=== PATIENT | male | born 1960 | race Caucasian/White ===

== ENCOUNTER 2021-02-19 08:25 | Outpatient (REF) | payer OTHER, SELFPAY ==
[2021-02-19 11:31] LABS: Hematocrit 43.5 % (42.0-52.0); Hemoglobin 15.1 g/dl (14.0-18.0); Mean Corpuscular HGB Conc 34.7 g/dl (31.0-36.0); Mean Corpuscular Hemoglobin 31.9 pg (27.0-33.0); Mean Platelet Volume 10.1 fL (9.4-12.4); Platelet Count 275 X10*3/uL (160-400); Red Blood Count 4.73 X10*6/uL (4.60-5.80); Red Cell Distribution Width 11.9 % (11.0-16.0); White Blood Count 6.2 X10*3/uL (4.8-10.8)
[2021-02-19 11:42] LABS: Estimated Average Glucose 105 mg/dL; Hemoglobin A1c % 5.3 %
[2021-02-19 12:00] LABS: Alanine Aminotransferase 61 U/L (0-40); Albumin Level 4.3 g/dL (3.5-5.0); Alkaline Phosphatase 44 U/L (39-117); Anion Gap 12 (12-20); Aspartate Amino Transferase 28 U/L (5-37); Bilirubin Total 0.9 mg/dL (0.0-1.0); Blood Urea Nitrogen 23 mg/dL (9-16); Calcium 9.6 mg/dL (8.4-10.2); Carbon Dioxide 26 mmol/L (22-29); Chloride 106 mmol/L (96-108); Cholesterol 292 mg/dL; Estimated Glomerular Filt Rate > 60; Glucose Fasting 109 mg/dL (60-99); HDL Cholesterol 51 mg/dL; LDL Cholesterol Calculated 193 mg/dl; Potassium 3.7 mmol/L (3.3-5.1); Sodium 140 mmol/L (135-145); Total Protein 7.2 g/dL (6.5-8.0); Triglycerides 241 mg/dL
[2021-02-19 12:05] LABS: Appearance Urine HAZY; Color Urine ORANGE; Glucose Urine UA NEG (NEG); Leukocyte Esterase Urine NEG (NEG); Nitrite Urine NEG (NEG); Urine Blood NEG (NEG); Urine Ketones NEG (NEG); Urine Protein NEG (NEG-TRACE)
[2021-02-19 12:23] LABS: Prostate Specific Antigen Scr 1.26 ng/mL (<0.05-4.0)
[2021-02-19 13:15] LABS: RBC Urine 0 /HPF (0); WBC Urine 0-2 /HPF (0-4)
[2021-02-19 13:16] LABS: Amorphous Sediment Urine 3+ /LPF; Mucus Urine 1+ /LPF
== END 2021-02-19 08:26 | disposition home or self-care (01) ==
LOC: HO.HMGCLDS 08:25
PROVIDERS: PCP Internal Medicine; Visit Provider Internal Medicine
DX: Z12.5 Encounter for screening for malignant neoplasm of prostate (principal); E78.5 Hyperlipidemia, unspecified; I10 Essential (primary) hypertension; R73.9 Hyperglycemia, unspecified
CPT/HCPCS: 36415; 80053; 80061; 81001; 83036; 84153; 85027

== ENCOUNTER 2022-02-23 09:35 | Outpatient (REF) | payer OTHER, SELFPAY ==
[2022-02-23 11:28] LABS: MANUAL DIFF FLAG NO
[2022-02-23 11:34] LABS: Basophils Absolute Auto 0.1 X10*3/uL (0.0-0.2); Basophils Percent Auto 0.8 % (0-2); Eosinophils Absolute Auto 0.2 X10*3/uL (0.0-0.4); Eosinophils Percent Auto 2.9 % (0-4); Hematocrit 44.9 % (42.0-52.0); Hemoglobin 15.5 g/dl (14.0-18.0); Imm Gran Abs Auto 0.03 X10*3/uL (0.00-0.03); Imm Gran Pct Auto 0.5 % (0.0-0.4); Lymphocytes Absolute Auto 1.7 X10*3/uL (1.2-4.9); Lymphocytes Percent Auto 25.6 % (20-40); Mean Corpuscular HGB Conc 34.5 g/dl (31.0-36.0); Mean Corpuscular Hemoglobin 31.8 pg (27.0-33.0); Mean Corpuscular Volume 92.2 fL (80.0-98.0); Mean Platelet Volume 10.3 fL (9.4-12.4); Monocytes Absolute Auto 0.5 X10*3/uL (0.1-1.2); Monocytes Percent Auto 7.3 % (2-11); Neutrophils Absolute Auto 4.2 x10*3/uL (2.0-8.3); Neutrophils Percent Auto 62.9 % (45-73); Platelet Count 272 X10*3/uL (160-400); Red Blood Count 4.87 X10*6/uL (4.60-5.80); Red Cell Distribution Width 11.7 % (11.0-16.0); White Blood Count 6.6 X10*3/uL (4.8-10.8)
[2022-02-23 13:55] LABS: Alanine Aminotransferase 57 U/L (0-40); Albumin Level 4.5 g/dL (3.5-5.0); Alkaline Phosphatase 47 U/L (39-117); Anion Gap 13 (12-20); Aspartate Amino Transferase 21 U/L (5-37); Bilirubin Total 0.9 mg/dL (0.0-1.0); Blood Urea Nitrogen 18 mg/dL (9-16); Calcium 9.7 mg/dL (8.4-10.2); Carbon Dioxide 28 mmol/L (22-29); Chloride 104 mmol/L (96-108); Cholesterol 218 mg/dL; Estimated Glomerular Filt Rate > 60; Glucose Fasting 117 mg/dL (60-99); HDL Cholesterol 47 mg/dL; LDL Cholesterol Calculated 135 mg/dl; PSA,Total (Free>4and<10) 0.77 ng/mL (0.00-4.00); Sodium 141 mmol/L (135-145); Total Protein 7.2 g/dL (6.5-8.0); Triglycerides 181 mg/dL
[2022-02-23 14:16] LABS: Estimated Average Glucose 105 mg/dL; Hemoglobin A1c % 5.3 %
== END 2022-02-23 09:36 | disposition home or self-care (01) ==
LOC: HO.HMGCLDS 09:35
PROVIDERS: PCP Internal Medicine; Visit Provider Internal Medicine
DX: R73.9 Hyperglycemia, unspecified (principal); E78.5 Hyperlipidemia, unspecified; I10 Essential (primary) hypertension; Z12.5 Encounter for screening for malignant neoplasm of prostate
CPT/HCPCS: 36415; 80053; 80061; 83036; 84153; 85025

== ENCOUNTER 2023-06-08 12:38 | Outpatient (AMB) | payer OTHER, SELFPAY ==
[2023-06-08 13:00] VITALS: BP 138/88; PULSE 84; O2SAT 97; BMI 29.6
--- NOTE | 2023-06-08 13:00 | MHC.PC.OV ---
Vital Signs 06/08/23 13:00 Height 5 ft 7 in Weight 189 lb BMI 29.6 BP 138/88 Blood Pressure Location Rt brachial Position Sitting Pulse 84 Pulse Source Pulse Oximeter Pulse Oximetry (%) 97 Oxygen Delivery Method Room Air Intake Visit Reasons: medication follow up Intake Note: Pt is here today for a follow up visit. Allergies aspirin Adverse Reaction (Verified 06/08/23 13:00) upset stomach Medication List - Last Reconciled 06/08/23 by Earline Saucedo MD lisinopril 40 mg PO DAILY omega-3 fatty acids 1,000 mg PO DAILY rosuvastatin (Crestor) 10 mg PO DAILY triamterene-hydrochlorothiazid 37.5-25 mg 1 tab PO DAILY Tobacco use date assessed: 06/08/23 Dental Screening Dental Screen Date: 06/08/23 Did you have a dental visit in the last 12 months?: Yes Did you have a dental problem in the last 6 months where you did not have access to dental care?: No Was dental information given to patient?: Patient has dentist HPI medication follow up HPI Details Patient presents for the follow-up on hypertension hyperlipidemia PFSH Medical History Annual physical exam Hyperglycemia Hyperlipidemia HTN (hypertension) Surgical History H/O colonoscopy Social History Housing: House Patient Tobacco Use Status: Former Tobacco user Years Smoked: 20 yrs e-Cigarette/Vaping Use: Never Used service: No Current occupational status: employed Cognitive needs: No Hearing needs: No Vision needs: Yes Questionnaire PHQ-9 Over the last 2 weeks, how often have you been bothered by any of the following problems? 1. Little interest or pleasure in doing things: not at all 2. Feeling down, depressed, or hopeless: not at all 3. Trouble falling or staying asleep, or sleeping too much: not at all 4. Feeling tired or having little energy: not at all 5. Poor appetite or overeating: not at all 6. Feeling bad about yourself - or that you are a failure or have let yourself or your family down: not at all 7. Trouble concentrating on things, such as reading the newspaper or watching television: not at all 8. Moving or speaking so slowly that other people could have noticed. Or the opposite - being so fidgety or restless that you have been moving around a lot more than usual: not at all 9. Thoughts that you would be better off or of hurting yourself in some way: not at all Total score: 0 Depression Screening Interpretation: Negative Depression Screening Done: Yes Source: Developed by Drs. Jethro Keating, Ashley Suero, Brendan Weems and colleagues, with an educational yusef from [employer]. Thrive Questionnaire Date Thrive assessed: 06/08/23 I am a: Patient What is your living situation today?: I have a steady place to live Within the past 12 months, did the food you bought not last and you didn't have the money to get more?: Never true Within the past 12 months, did you worry whether your food would run out before you got money to buy more?: Never true Do you have trouble paying for medicines?: No Do you have trouble getting transportation to medical appointments?: No Do you have trouble paying your heating and electricity bill?: No Do you have trouble taking care of your child, family member or friend?: No Do you have trouble with day-to-day activities such as bathing, preparing meals, shopping, managing finances, etc.?: No Are you currently unemployed and looking for a job?: No Are you interested in more education?: No Please select the resources that you would like help with: None Currently or been in a relationship where the following occur: no concerns reported THRIVE Score: 0 AUDIT C Alcohol Use Questionnaire (AUDIT-C) 1. How often do you have a drink containing alcohol?: Monthly or less 2. How many drinks containing alcohol do you have on a typical day when you are drinking?: 1 or 2 3. How often do you have six or more drinks on one occasion?: Never Total Score: 1 ASIF-7 AMB Questionnaire ASIF-7 Date ASFI - 7 assessed: 06/08/23 Feeling nervous, anxious, or on edge: 0 = Not at all Not being able to stop or control worryin = Not at all Worrying too much about different things: 0 = Not at all Trouble relaxin = Not at all Being so restless that it is hard to sit still: 0 = Not at all Becoming easily annoyed or irritable: 0 = Not at all Feeling afraid as if something awful might happen: 0 = Not at all Total ASIF-7 score (0-4 normal; 5-9 mild; 10-14 moderate; 15-21 severe): 0 Source: Developed by Drs. Jethro Keating, Ashley Suero, Brendan Weems and colleagues, with an educational yusef from [employer]. ASIF-7 Assessment Billing ASIF-7 Assessment Tool: ASIF-7 Assessment 65825 Review of Systems Const All systems reviewed & are unremarkable except as noted in HPI and below Eyes Reports no additional complaints ENT Reports no additional complaints Card Reports no additional complaints Resp Reports no additional complaints GI Reports no additional complaints Physical exam (Primary Care) Vital Signs: Last Vital Signs Pulse 84 06/08/23 13:00 Pulse Ox 97 06/08/23 13:00 Oxygen Delivery Method Room Air 06/08/23 13:00 BMI result Body Mass Index 29.6 Tobacco/Smoking Status: Tobacco use Status Tobacco use date assessed 06/08/23 06/08/23 13:07 Patient Tobacco Use Status Former Tobacco user 06/08/23 13:07 e-Cigarette/Vaping Use Never Used 06/08/23 13:07 PHQ-9: PHQ-9 Score PHQ-9: Total score 0 06/08/23 13:31 Depression Screening Interpretation: Negative Thrive Assessment: Date of Thrive Assessment Date Thrive assessed 06/08/23 06/08/23 13:07 Currently or been in a relationship where the following occur: no concerns reported Const General: no acute distress HENMT Head: Yes normal to inspection Mouth: Normal oral and palatal mucosa present Eyes General: appearance normal, both eyes and all related structures Resp Effort & Inspection: normal respiratory effort Auscultation: clear to auscultation bilaterally Cardio Rhythm: regular rhythm Heart sounds: S1 normal heart sound present and S2 normal heart sound present GI Inspection: Yes normal to inspection Assessment and Plan Assessment & Plan (1) Annual physical exam: Code(s): Z00.00 - Encounter for general adult medical examination without abnormal findings (2) Hyperglycemia: Code(s): R73.9 - Hyperglycemia, unspecified Plan: ADA diet regular physical activity discussed with the patient return for fasting blood work including A1c (3) Hyperlipidemia: Code(s): E78.5 - Hyperlipidemia, unspecified Plan: Continue crestor (4) HTN (hypertension): Code(s): I10 - Essential (primary) hypertension Plan: Change lisinopril 40 mg to amlodipine with benazepril 5/40 and continue triamterene with hydrochlorothiazide patient will return for fasting blood work and follow-up in 6 weeks Orders: Orders Lipid Panel Today E78.5 - Hyperlipidemia, unspecified, I10 - Essential (primary) hypertension, R73.9 - Hyperglycemia, unspecified, Z00.00 - Encounter for general adult medical examination without abnormal findings PSA,Total (Free>4and<10) Today E78.5 - Hyperlipidemia, unspecified, I10 - Essential (primary) hypertension, R73.9 - Hyperglycemia, unspecified, Z00.00 - Encounter for general adult medical examination without abnormal findings Comprehensive [place]. Panel Fast Today E78.5 - Hyperlipidemia, unspecified, I10 - Essential (primary) hypertension, R73.9 - Hyperglycemia, unspecified, Z00.00 - Encounter for general adult medical examination without abnormal findings Complete Blood Count Auto Diff Today E78.5 - Hyperlipidemia, unspecified, I10 - Essential (primary) hypertension, R73.9 - Hyperglycemia, unspecified, Z00.00 - Encounter for general adult medical examination without abnormal findings UA w Microscopic Today E78.5 - Hyperlipidemia, unspecified, I10 - Essential (primary) hypertension, R73.9 - Hyperglycemia, unspecified, Z00.00 - Encounter for general adult medical examination without abnormal findings Hemoglobin A1c Today R73.9 - Hyperglycemia, unspecified Medications: New amlodipine-benazepril 5-40 mg 1 cap PO DAILY 90 caps 0RF Refilled triamterene-hydrochlorothiazid 37.5-25 mg 1 tab PO DAILY 90 tabs 0RF triamterene-hydrochlorothiazid 37.5-25 mg 1 tab PO DAILY 90 tabs 3RF rosuvastatin (Crestor) 10 mg PO DAILY 90 tabs 3RF Discontinued lisinopril Discontinued Reason: Doctor's Order 40 mg PO DAILY 90 tabs 0RF Coding Level of Care Code Est Pt Level 4 (72575) Diagnoses Annual physical exam Z00.00 Hyperglycemia R73.9 Hyperlipidemia E78.5 HTN (hypertension) I10 Additional Codes ASIF-7 Assessment Billing - ASIF-7 Assessment Tool: ASIF-7 Assessment 92802 ([id number])
== END 2023-06-08 13:44 | disposition home or self-care (01) ==
PROVIDERS: PCP Internal Medicine; Visit Provider Internal Medicine
DX: R73.9 Hyperglycemia, unspecified (principal); E78.5 Hyperlipidemia, unspecified; I10 Essential (primary) hypertension
CPT/HCPCS: 99214

== ENCOUNTER 2023-07-13 07:44 | Outpatient (REF) | payer OTHER, SELFPAY ==
[2023-07-13 10:27] LABS: Appearance Urine Clear; Color Urine Dark Yellow; Glucose Urine UA Negative (Negative); Leukocyte Esterase Urine Negative (Negative); Nitrite Urine Negative (Negative); PH 6.5 (5.0-9.0); Specific Gravity - Urine 1.025 (1.005-1.025); Urine Blood Negative (Negative); Urine Ketones Negative (Negative); Urine Protein Trace mg/dL (Neg-Trace)
[2023-07-13 10:27] LABS: MANUAL DIFF FLAG NO
[2023-07-13 10:43] LABS: Bacteria Urine None Seen (None Seen); Hyaline Casts Urine 0-2 /LPF (0-2); RBC Urine 0-2 /HPF (0-2); Squamous Epithelial Cell Urine 0-2 /HPF (0-2); WBC Urine 0-5 /HPF (0-5)
[2023-07-13 10:45] LABS: Basophils Absolute Auto 0.1 X10*3/uL (0.0-0.2); Basophils Percent Auto 1.1 % (0-2); Eosinophils Absolute Auto 0.1 X10*3/uL (0.0-0.4); Eosinophils Percent Auto 2.4 % (0-4); Hematocrit 44.3 % (42.0-52.0); Hemoglobin 15.3 g/dl (14.0-18.0); Imm Gran Abs Auto 0.02 X10*3/uL (0.00-0.03); Imm Gran Pct Auto 0.4 % (0.0-0.4); Lymphocytes Absolute Auto 1.5 X10*3/uL (1.2-4.9); Mean Corpuscular HGB Conc 34.5 g/dl (31.0-36.0); Mean Corpuscular Hemoglobin 32.3 pg (27.0-33.0); Mean Corpuscular Volume 93.5 fL (80.0-98.0); Mean Platelet Volume 10.3 fL (9.4-12.4); Monocytes Absolute Auto 0.6 X10*3/uL (0.1-1.2); Monocytes Percent Auto 10.6 % (2-11); Neutrophils Absolute Auto 3.2 x10*3/uL (2.0-8.3); Neutrophils Percent Auto 58.5 % (45-73); Platelet Count 251 X10*3/uL (160-400); Red Blood Count 4.74 X10*6/uL (4.60-5.80); Red Cell Distribution Width 11.4 % (11.0-16.0); White Blood Count 5.4 X10*3/uL (4.8-10.8)
[2023-07-13 10:54] LABS: Estimated Average Glucose 108 mg/dL; Hemoglobin A1c % 5.4 % (<6.0)
[2023-07-13 11:06] LABS: PSA,Total (Free>4and<10) 1.57 ng/mL (0.00-4.00)
[2023-07-13 11:18] LABS: Alanine Aminotransferase 43 U/L (0-40); Albumin Level 4.1 g/dL (3.5-5.0); Alkaline Phosphatase 39 U/L (39-117); Anion Gap 13 (12-20); Aspartate Amino Transferase 23 U/L (5-37); Bilirubin Total 0.7 mg/dL (0.0-1.0); Blood Urea Nitrogen 16 mg/dL (9-16); Calcium 9.5 mg/dL (8.4-10.2); Carbon Dioxide 27 mmol/L (22-29); Chloride 106 mmol/L (96-108); Cholesterol 179 mg/dL (<200); Estimated Glomerular Filt Rate > 60; Glucose Fasting 104 mg/dL (60-99); HDL Cholesterol 47 mg/dL (>40); LDL Cholesterol Calculated 96 mg/dL (<100); Potassium 3.6 mmol/L (3.3-5.1); Sodium 142 mmol/L (135-145); Total Protein 7.3 g/dL (6.5-8.0); Triglycerides 182 mg/dL (<150)
== END 2023-07-13 07:45 | disposition home or self-care (01) ==
LOC: HO.HMGCLDS 07:44
PROVIDERS: PCP Internal Medicine; Visit Provider Internal Medicine
DX: Z00.00 Encounter for general adult medical examination without abnormal findings (principal); R73.9 Hyperglycemia, unspecified; E78.5 Hyperlipidemia, unspecified; I10 Essential (primary) hypertension
CPT/HCPCS: 36415; 80053; 80061; 81001; 83036; 84153; 85025

== ENCOUNTER 2023-07-22 11:06 | Outpatient (AMB) | payer OTHER, SELFPAY ==
[2023-07-22 11:19] VITALS: BP 136/88; PULSE 86; O2SAT 98; BMI 29.8
--- NOTE | 2023-07-22 11:19 | A.OFFPC_ITS ---
Vital Signs 07/22/23 11:19 Height 5 ft 7 in Weight 190 lb BMI 29.8 BP 136/88 Blood Pressure Location Lt brachial Position Sitting Pulse 86 Pulse Source Pulse Oximeter Pulse Oximetry (%) 98 Oxygen Delivery Method Room Air Intake Visit Reasons: medication follow up Intake Note: Pt is here today for a follow up visit. Allergies aspirin Adverse Reaction (Verified 07/22/23 11:19) upset stomach Medication List - Last Reconciled 07/22/23 by Earline Saucedo MD amlodipine-benazepril 5-40 mg 1 cap PO DAILY omega-3 fatty acids 1,000 mg PO DAILY rosuvastatin (Crestor) 10 mg PO DAILY triamterene-hydrochlorothiazid 37.5-25 mg 1 tab PO DAILY Tobacco use date assessed: 07/22/23 Dental Screening Dental Screen Date: 06/08/23 HPI medication follow up HPI Details Pt presents for HTN and hyperlipid, stable on meds. [facility] Medical History Annual physical exam Hyperglycemia Hyperlipidemia HTN (hypertension) Surgical History H/O colonoscopy Social History Housing: House Patient Tobacco Use Status: Former Tobacco user Years Smoked: 20 yrs e-Cigarette/Vaping Use: Never Used service: No Current occupational status: employed Cognitive needs: No Hearing needs: No Vision needs: Yes Questionnaire Thrive Questionnaire Date Thrive assessed: 06/08/23 ASIF-7 AMB Questionnaire ASIF-7 Date ASIF - 7 assessed: 06/08/23 Source: Developed by Drs. Jethro Keating, Ashley Suero, Brendan Weems and colleagues, with an educational yusef from [employer]. Review of Systems Const All systems reviewed & are unremarkable except as noted in HPI and below ENT Reports no additional complaints Card Reports no additional complaints Resp Reports no additional complaints GI Reports no additional complaints Reports no additional complaints Physical exam (Primary Care) Vital Signs: Last Vital Signs Pulse 86 07/22/23 11:19 BP 136/88 07/22/23 11:19 Pulse Ox 98 07/22/23 11:19 Oxygen Delivery Method Room Air 07/22/23 11:19 BMI result Body Mass Index 29.8 Tobacco/Smoking Status: Tobacco use Status Tobacco use date assessed 07/22/23 07/22/23 11:19 Patient Tobacco Use Status Former Tobacco user 07/22/23 11:19 e-Cigarette/Vaping Use Never Used 07/22/23 11:19 Thrive Assessment: Date of Thrive Assessment Date Thrive assessed 06/08/23 07/22/23 11:19 Const General: no acute distress HENMT Face and sinus: Yes normal facial exam Eyes General: appearance normal, both eyes and all related structures Resp Effort & Inspection: normal respiratory effort Auscultation: clear to auscultation bilaterally Cardio Rhythm: regular rhythm Heart sounds: S1 normal heart sound present and S2 normal heart sound present Assessment and Plan Assessment & Plan (1) HTN (hypertension): Code(s): I10 - Essential (primary) hypertension Plan: Continue current medication low-sodium diet increase physical activity discussed with the patient follow-up in 2 months (2) Hyperlipidemia: Code(s): E78.5 - Hyperlipidemia, unspecified Plan: cont statin Orders: Orders Basic Metabolic Panel 2 Months I10 - Essential (primary) hypertension Coding Level of Care Code Est Pt Level 3 (03999) Diagnoses HTN (hypertension) I10 Hyperlipidemia E78.5
== END 2023-07-22 11:45 | disposition home or self-care (01) ==
PROVIDERS: PCP Internal Medicine; Visit Provider Internal Medicine
DX: I10 Essential (primary) hypertension (principal); E78.5 Hyperlipidemia, unspecified
CPT/HCPCS: 99213

== ENCOUNTER 2023-10-31 09:30 | Outpatient (REF) | payer OTHER, SELFPAY ==
[2023-10-31 11:40] LABS: Anion Gap 14 (12-20); Blood Urea Nitrogen 23 mg/dL (9-16); Calcium 9.2 mg/dL (8.4-10.2); Carbon Dioxide 26 mmol/L (22-29); Chloride 103 mmol/L (96-108); Estimated Glomerular Filt Rate > 60; Glucose Random 117 mg/dL (60-115); Potassium 3.6 mmol/L (3.3-5.1); Sodium 139 mmol/L (135-145)
== END 2023-10-31 09:31 | disposition home or self-care (01) ==
LOC: HO.HMGCLDS 09:30
PROVIDERS: PCP Internal Medicine; Visit Provider Internal Medicine
DX: I10 Essential (primary) hypertension (principal)
CPT/HCPCS: 36415; 80048

== ENCOUNTER 2023-11-02 11:06 | Outpatient (AMB) | payer OTHER, SELFPAY ==
[2023-11-02 11:17] VITALS: BP 128/84; PULSE 75; O2SAT 97; BMI 29.6
--- NOTE | 2023-11-02 11:17 | MHC.PC.OV ---
Vital Signs 11/02/23 11:17 Height 5 ft 7 in Weight 189 lb BMI 29.6 BP 128/84 Blood Pressure Location Lt brachial Position Sitting Pulse 75 Pulse Source Pulse Oximeter Pulse Oximetry (%) 97 Oxygen Delivery Method Room Air Intake Visit Reasons: 2 month follow up Intake Note: Pt is here today for 2 months follow up visit on HTN. Allergies aspirin Adverse Reaction (Verified 11/02/23 11:29) upset stomach Medication List - Last Reconciled 11/02/23 by Earline Saucedo MD amlodipine-benazepril 5-40 mg 1 cap PO DAILY omega-3 fatty acids 1,000 mg PO DAILY rosuvastatin (Crestor) 10 mg PO DAILY triamterene-hydrochlorothiazid 37.5-25 mg 1 tab PO DAILY Tobacco use date assessed: 07/22/23 Dental Screening Dental Screen Date: 06/08/23 HPI 2 month follow up HPI Details Patient presents for the follow-up on hypertension hyperlipidemia PFSH Medical History Annual physical exam Hyperglycemia Hyperlipidemia HTN (hypertension) Surgical History H/O colonoscopy Social History Housing: House Patient Tobacco Use Status: Former Tobacco user Years Smoked: 20 yrs e-Cigarette/Vaping Use: Never Used service: No Current occupational status: employed Cognitive needs: No Hearing needs: No Vision needs: Yes Questionnaire Thrive Questionnaire Date Thrive assessed: 06/08/23 ASIF-7 AMB Questionnaire ASIF-7 Date ASIF - 7 assessed: 06/08/23 Source: Developed by Drs. Jethro Keating, Ashley Seuro, Brendan Weems and colleagues, with an educational yusef from [employer]. Review of Systems Const All systems reviewed & are unremarkable except as noted in HPI and below Eyes Reports no additional complaints ENT Reports no additional complaints Card Reports no additional complaints Resp Reports no additional complaints GI Reports no additional complaints Reports no additional complaints Musc Reports no additional complaints Physical exam (Primary Care) Vital Signs: Last Vital Signs Pulse 75 11/02/23 11:17 BP 128/84 11/02/23 11:17 Pulse Ox 97 11/02/23 11:17 Oxygen Delivery Method Room Air 11/02/23 11:17 BMI result Body Mass Index 29.6 Tobacco/Smoking Status: Tobacco use Status Tobacco use date assessed 07/22/23 11/02/23 11:19 Patient Tobacco Use Status Former Tobacco user 11/02/23 11:19 e-Cigarette/Vaping Use Never Used 11/02/23 11:19 Thrive Assessment: Date of Thrive Assessment Date Thrive assessed 06/08/23 11/02/23 11:19 Const General: no acute distress HENMT Head: Yes normal to inspection Neck Neck: Yes supple Resp Effort & Inspection: normal respiratory effort Auscultation: clear to auscultation bilaterally Cardio Rhythm: regular rhythm Heart sounds: S1 normal heart sound present and S2 normal heart sound present GI Inspection: Yes normal to inspection Palpation (GI): Soft to palpation Assessment and Plan Assessment & Plan (1) Hyperglycemia: Code(s): R73.9 - Hyperglycemia, unspecified Plan: Continue ADA diet check A1C in 3 months (2) Hyperlipidemia: Code(s): E78.5 - Hyperlipidemia, unspecified Plan: Continue rosuvastatin (3) HTN (hypertension): Code(s): I10 - Essential (primary) hypertension Plan: Continue current medications follow-up in 3 months with a fasting labs before Orders: Orders Hemoglobin A1c 3 Months E78.5 - Hyperlipidemia, unspecified, I10 - Essential (primary) hypertension, R73.9 - Hyperglycemia, unspecified Lipid Panel 3 Months E78.5 - Hyperlipidemia, unspecified, I10 - Essential (primary) hypertension, R73.9 - Hyperglycemia, unspecified Comprehensive [place]. Panel Fast 3 Months E78.5 - Hyperlipidemia, unspecified, I10 - Essential (primary) hypertension, R73.9 - Hyperglycemia, unspecified Complete Blood Count Auto Diff 3 Months E78.5 - Hyperlipidemia, unspecified, I10 - Essential (primary) hypertension, R73.9 - Hyperglycemia, unspecified Microalbumin, Random (w Creat) 3 Months E78.5 - Hyperlipidemia, unspecified, I10 - Essential (primary) hypertension, R73.9 - Hyperglycemia, unspecified Medications: Changed From rosuvastatin (Crestor) 10 mg PO DAILY 90 tabs 3RF To rosuvastatin 10 mg PO DAILY 90 tabs 3RF Refilled amlodipine-benazepril 5-40 mg 1 cap PO DAILY 90 caps 3RF Coding Level of Care Code Est Pt Level 4 (51436) Diagnoses Hyperglycemia R73.9 Hyperlipidemia E78.5 HTN (hypertension) I10
== END 2023-11-02 12:19 | disposition home or self-care (01) ==
PROVIDERS: PCP Internal Medicine; Visit Provider Internal Medicine
DX: R73.9 Hyperglycemia, unspecified (principal); E78.5 Hyperlipidemia, unspecified; I10 Essential (primary) hypertension
CPT/HCPCS: 99214

== ENCOUNTER 2024-02-21 08:49 | Outpatient (REF) | payer OTHER, SELFPAY ==
--- OUTSIDE RECORDS SUMMARY | 2024-02-21 09:08 | XMS_ITS | Data Portability ---
Author Organization [place] [facility] Gregory Pena [place] Address [address] [facility] [address] [place] [address] Care Team Providers Care Full Roll Inspector Name Role Phone BILLORLANDOReinaldoSTEVENSON Primary Care Provider [phone] Assessment Encounter Date Assessment Date Assessment LastModified by Organization Details LastModified Time 10/05/2022 10/05/2022 This is a pleasant 61-year-old male with ongoing left knee pain has been getting progressively worse with clinical exam findings suggestive of derangement of meniscus versus mild arthritic flare. I had a discussion regarding management for which she opted for cortisone injection at today's visit. After verbal consent was granted the procedure was carried out on the left knee tolerated the procedure well. Aftercare instructions were discussed in detail. We discussed other modalities including brqv-ljs-[id number] analgesia and topicals as well as therapy. The symptoms however do not improve in 4 weeks he will call me and I will order an MRI otherwise I will see him back in 3 months for repeat clinical exam. Should he have any questions or concerns he should contact my office. He waited 15 minutes in the waiting room without any untoward effect from the cortisone injection. Indirect care and treatment in conjunction with Dr. Matthew Additional treatment plan discussed with the patient in detail included the following; - Provider focused nonsteroidal anti-inflammator y regimen (discussed were the pros, cons, benefits and risks as well as any black box warnings) in patients over 60 years old they should be very cautious in taking these medications due to potential decreased kidney function and or elevated blood pressure. - Analgesic pain medication for pain suppression (discussed were the pros, cons, benefits and risks as well as any black box warnings) - The use of topical pain relieving medication were discussed - The use of ice to decrease inflammation and pain - The use of assistive ambulatory devices for ambulation and fall prevention - Formal specific guided physical therapy program I reviewed my findings at length with the patient today. ??We discussed the nature and etiology of this problem along with current treatment options. We discussed the expected course and outcomes and what to expect. We also discussed risks and benefits. ?? All of their questions were answered today, and there was exhibited understanding and comprehension of all that was discussed. Time Spent: 10 minutes were spent reviewing previous imaging and charting. ??10 minutes were spent obtaining patient history. ??5 minutes were spent on physical exam. ??5??minutes were spent explaining diagnosis and assessment. Today's documentation was made using voice recognition software. This note may contain grammatical errors secondary to the software. Not available 10/05/2022 10:19:38 Plan of Treatment Reminders Order Date Submit Date Provider Last Modified By Organization Details Last Modified Time Details Appointments None recorded. Lab None recorded. Referral None recorded. Procedures None recorded. Surgeries None recorded. Imaging XR, knee, 4 or more view 2022 [address] [place] [address] [facility], [address], [place], [address], 3 15:02:12 Medication Orders Kenalog 40 mg/mL suspension for injection 2022 [address] [place] [address] [facility], [address] [place], [address], 3 10:20:12 lidocaine (PF) 10 mg/mL (1 %) injection solution 2022 [address] [place] [address] [facility], [address] [place], [address], 3 10:20:12 Patient TargetsNo targets recorded. Patient Instructions Encounter Date Encounter Id Patient Instructions Last Modified By Organization Details Last Modified Time 10/05/2022 [id number] You have been provided with a cortisone injection in order to reduce the pain and inflammation that you are experiencing. The injection consists of two medications. Cortisone (an anti-inflammatory that will take 48-72 hours to take effect) and Lidocaine (a numbing agent that will last 2-3 hours). Please note that not everyone will have a lasting response following the injection. PATIENT INSTRUCTIONS Once the Lidocaine wears off, you may have an increase in your pain. I recommend icing the affected area for 20 minutes 3-4 times per day. It is recommended that you refrain from any high level activities using the joint or limb that was injected for approximately 24-48 hours. Normal day-to-day activities are generally not a problem. POSSIBLE SIDE EFFECTS Individuals with dark complexions may experience some skin discoloration locally at the site of the injection. There is the possibility of an increase in discomfort within 48 hours following the injection. This is called a ? flare? . To help minimize the chances of this, please see the post-injection instructions above. There is a less than 1% chance of an infection. If you notice any signs of infection (redness, warmth, drainage, fever greater than 100 degrees) please call our office or contact us through the portal [facility]. Not available 10/05/2022 10:20:22 4 view x-ray of the left knee reveals very mild degenerative joint disease otherwise no acute bony abnormality Not available 10/05/2022 09:56:28 Reason for Referral None Reported. Problems Name Problem SNOMED Code Status Onset Date Resolution Date Notes Provider Name and Address Organization Details Recorded Time Derangement of medial meniscus 389013804 Active 2022 BETTY UDNERWOOD PA-C [address], [place], [address], [place] [facility] 3 10:19:51 Problem Notes None recorded. Procedures Surgical History Date Name Laterality Status Provider Name and Address Organization Details Recorded Time 3 Knee Joint/Bursa Asp & Inj completed BETTY UNDERWOOD PA-C [address], [place], [address], [place] [facility] 10/05/2022 10:16:54 Knee Surgery completed [facility] - [facility] 10/05/2022 10:03:09 Imaging Results None recorded. Procedure Notes None recorded. Medical Equipment None Reported. Allergies No known drug allergies Medications Name Sig Start Date Stop Date Status Note LastModified by Organization Details LastModified Time Kenalog 40 mg/mL suspension for injection Take 1 mL by injection route. 2022 active Not Available Not Available Not Avai lable triamterene 37.5 mg-hydrochl orothiazide 25 mg tablet TAKE 1 TABLET BY MOUTH DAILY active Not Available Not Available No t Available lisinopril 40 mg tablet TAKE 1 TABLET BY MOUTH DAILY active Not Available Not Available No t Available doxycycline hyclate 100 mg tablet TAKE ONE TABLET BY MOUTH TWICE A DAY FOR 10 DAYS 10/05 completed Not Available Not Available Not Available rosuvastati n 10 mg tablet TAKE ONE TABLET BY MOUTH EVERY DAY active Not Available Not Available No t Available lidocaine (PF) 10 mg/mL (1 %) injection solution Take 2 mL by injection route. 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 No Information not available 10/05/2022 Do You Or Have You Ever Used Any Other Forms Of Tobacco Or Nicotine? No Information not available 10/05/2022 Sex: Unknown Functional Status None recorded. Mental Status None recorded. Family History Relationship Description Onset Age of this Age Resolved Age Notes LastModified by Organization Details LastModified Time Mother Hyperchcherry lomeli [email or web address] Not available 2022 10:02:49 Medical History Condition Response Hypertension Y Past Encounters Encounter ID Performer Location Encounter Start Date Encounter Closed Date Diagnosis/Indication Diagnosis SNOMED-CT Code Diagnosis ICD10 Code [id number] MD SARINA [place]on [place] [address] [facility] [address] [facility] [place] [address] 10/05/2022 09:26:25 10/05/2022 10:27:00 Pain of left knee joint 7183761857 [address] M25.562 Derangemen t of medial meniscus 176309799 M23.309 Health Concerns Section Related Observation LastModified by Organization Detai ls LastModified Time None Recorded Concern Status LastModified by Organization Details LastModified Time None Recorded Advance Directives Directive None Recorded Payers Encounter Date Sequence Insurance Name Policy Number Policy Dominguez Covered Member ID Dominguez Member ID Guarantor Name 10/05/2022 1 [facility] [employer] [id number] Arnav J Matteridarlene [id number] Arnav Milian Notes Date Note Type Note Provider Name and Address Organization Details Recorded Time 10/05/2022 text/html This is a very pleasant 61-year-old male here for evaluation of left knee pain its been getting progressively worse over the last year. He states he is very active for which flares his medial pain. He also states when he sits for prolonged period of time he has medial knee pain. Denies any injury denies any history of rheumatoid arthritis, gout, Lyme disease here for evaluation and treatment. Pertinent to his orthopedic history he had arthroscopic knee surgery on the right side many years ago. BETTY UNDERWOOD PA-C [address] [facility] [address], [place], [address], [place] [facility] 10/05/2022 10:20:57
[2024-02-21 09:53] LABS: MANUAL DIFF FLAG NO
[2024-02-21 10:13] LABS: Basophils Absolute Auto 0.1 X10*3/uL (0.0-0.2); Basophils Percent Auto 1.2 % (0-2); Eosinophils Absolute Auto 0.2 X10*3/uL (0.0-0.4); Eosinophils Percent Auto 4.4 % (0-4); Hematocrit 41.3 % (42.0-52.0); Hemoglobin 14.7 g/dl (14.0-18.0); Imm Gran Abs Auto 0.02 X10*3/uL (0.00-0.03); Imm Gran Pct Auto 0.4 % (0.0-0.4); Lymphocytes Absolute Auto 1.2 X10*3/uL (1.2-4.9); Lymphocytes Percent Auto 23.7 % (20-40); Mean Corpuscular HGB Conc 35.6 g/dl (31.0-36.0); Mean Corpuscular Hemoglobin 32.4 pg (27.0-33.0); Mean Platelet Volume 9.9 fL (9.4-12.4); Monocytes Absolute Auto 0.5 X10*3/uL (0.1-1.2); Monocytes Percent Auto 10.2 % (2-11); Neutrophils Absolute Auto 3.1 x10*3/uL (2.0-8.3); Neutrophils Percent Auto 60.1 % (45-73); Platelet Count 244 X10*3/uL (160-400); Red Blood Count 4.54 X10*6/uL (4.60-5.80); Red Cell Distribution Width 11.7 % (11.0-16.0); White Blood Count 5.2 X10*3/uL (4.8-10.8)
[2024-02-21 10:21] LABS: Estimated Average Glucose 105 mg/dL; Hemoglobin A1c % 5.3 % (<6.0); Total Hemoglobin (HGBA1C) 3819.2424 umol/L
[2024-02-21 10:35] LABS: Creatinine Urine 223.78 mg/dL; Microalbum/Creatinine Ratio Ur 7.5 ug/mg cr (<30)
[2024-02-21 10:44] LABS: Alanine Aminotransferase 57 U/L (0-40); Albumin Level 4.2 g/dL (3.5-5.0); Alkaline Phosphatase 47 U/L (39-117); Anion Gap 9 (12-20); Aspartate Amino Transferase 28 U/L (5-37); Blood Urea Nitrogen 21 mg/dL (9-16); Carbon Dioxide 29 mmol/L (22-29); Chloride 104 mmol/L (96-108); Cholesterol 186 mg/dL (<200); Estimated Glomerular Filt Rate > 60; Glucose Fasting 107 mg/dL (60-99); HDL Cholesterol 46 mg/dL (>40); LDL Cholesterol Calculated 104 mg/dL (<100); Potassium 3.2 mmol/L (3.3-5.1); Sodium 139 mmol/L (135-145); Total Protein 7.3 g/dL (6.5-8.0); Triglycerides 181 mg/dL (<150)
== END 2024-02-21 08:50 | disposition home or self-care (01) ==
LOC: HO.HMGCLDS 08:49
PROVIDERS: PCP Internal Medicine; Visit Provider Internal Medicine
DX: I10 Essential (primary) hypertension (principal); E78.5 Hyperlipidemia, unspecified; R73.9 Hyperglycemia, unspecified
CPT/HCPCS: 36415; 80053; 80061; 82043; 82570; 83036; 85025

== ENCOUNTER 2024-02-22 09:24 | Outpatient (AMB) | payer OTHER, SELFPAY ==
--- OUTSIDE RECORDS SUMMARY | 2024-02-22 09:28 | XMS_ITS ---
Author Name [facility] Organization Unknown History of Medication Use Medication Directions Dispensed Refills Start Date End Date Stat lidocaine (PF) 10 mg/mL (1 %) injection solution Take 2 mL by injection route. 10/07/2022 active doxycycline hyclate 100 mg tablet TAKE ONE TABLET BY MOUTH TWICE A DAY FOR 10 DAYS 10/07/2022 completed triamterene 37.5 mg-hydrochlorothiazi de 25 mg tablet TAKE 1 TABLET BY MOUTH DAILY 10/07/2022 active rosuvastatin 10 mg tablet TAKE ONE TABLET BY MOUTH EVERY DAY 10/07/2022 active lisinopril 40 mg tablet TAKE 1 TABLET BY MOUTH DAILY 10/07/2022 active Kenalog 40 mg/mL suspension for injection Take 1 mL by injection route. 10/07/2022 active Problems Problem Status Onset Date Problem Type Date of Resoluti on Source Derangement of medial meniscus active 2022-10-05 ProblemAct [facility]
--- NOTE | 2024-02-22 09:29 | MHC.PC.OV ---
Vital Signs 02/22/24 09:31 Height 5 ft 7 in Weight 196 lb BMI 30.7 BP 130/80 Blood Pressure Location Lt brachial Position Sitting Pulse 83 Pulse Source Pulse Oximeter Pulse Oximetry (%) 98 Oxygen Delivery Method Room Air Intake Visit Reasons: 3m follow up Allergies aspirin Adverse Reaction (Verified 11/02/23 11:29) upset stomach Medication List - Last Reconciled 02/22/24 by Earline Saucedo MD amlodipine-benazepril 5-40 mg 1 cap PO DAILY omega-3 fatty acids 1,000 mg PO DAILY potassium chloride ER 15 mEq PO DAILY triamterene-hydrochlorothiazid 37.5-25 mg 1 tab PO DAILY Tobacco use date assessed: 02/22/24 Dental Screening Dental Screen Date: 06/08/23 HPI 3m follow up HPI Details Patient presents for the follow-up of hypertension and hyperlipidemia stable on current medications [facility] History Annual physical exam Hyperglycemia Hyperlipidemia HTN (hypertension) Surgical History H/O colonoscopy Social History Housing: House Patient Tobacco Use Status: Former Tobacco user Years Smoked: 20 yrs e-Cigarette/Vaping Use: Never Used service: No Current occupational status: employed Cognitive needs: No Hearing needs: No Vision needs: Yes Questionnaire Thrive Questionnaire Date Thrive assessed: 06/08/23 ASIF-7 AMB Questionnaire ASIF-7 Date ASIF - 7 assessed: 06/08/23 Source: Developed by Drs. Jethro Keating, Ashley Suero, Brendan Weems and colleagues, with an educational yusef from [employer]. Review of Systems Const All systems reviewed & are unremarkable except as noted in HPI and below ENT Reports no additional complaints Card Reports no additional complaints Resp Reports no additional complaints GI Reports no additional complaints Reports no additional complaints Physical exam (Primary Care) Vital Signs: Last Vital Signs Pulse 83 02/22/24 09:31 BP 130/80 02/22/24 09:31 Pulse Ox 98 02/22/24 09:31 Oxygen Delivery Method Room Air 02/22/24 09:31 BMI result Body Mass Index 30.7 Tobacco/Smoking Status: Tobacco use Status Tobacco use date assessed 02/22/24 02/22/24 09:34 Patient Tobacco Use Status Former Tobacco user 02/22/24 09:29 e-Cigarette/Vaping Use Never Used 02/22/24 09:29 Thrive Assessment: Date of Thrive Assessment Date Thrive assessed 06/08/23 02/22/24 09:29 Const General: no acute distress HENMT Head: Yes normal to inspection Face and sinus: Yes normal facial exam Eyes General: appearance normal, both eyes and all related structures Resp Effort & Inspection: normal respiratory effort Auscultation: clear to auscultation bilaterally Cardio Rhythm: regular rhythm Heart sounds: S1 normal heart sound present and S2 normal heart sound present GI Inspection: Yes normal to inspection Palpation (GI): Soft to palpation Percussion: Yes normal to percussion Auscultation: normal bowel sounds Coding Level of Care Code Est Pt Level 4 (69348) Diagnoses Hypokalemia E87.6 Elevated liver enzymes R74.8 Hyperlipidemia E78.5 Assessment & Plan Assessment & Plan (1) Hypokalemia: Code(s): E87.6 - Hypokalemia Category: Medical Plan: Potassium chloride 15 mEq for 1 week as prescribed. Patient will recheck basic metabolic panel in 1 week. He was advised to increase potassium rich foods and check comprehensive panel in 1 month. (2) Elevated liver enzymes: Code(s): R74.8 - Abnormal levels of other serum enzymes Category: Medical Plan: Decrease alcohol and simple carbohydrates intake discussed with the patient. Obtain abdominal ultrasound (3) Hyperlipidemia: Code(s): E78.5 - Hyperlipidemia, unspecified Category: Medical Plan: Continue Crestor, return for physical in 4 months with fasting labs before Orders: Orders Comprehensive Met. Panel 1 Month E78.5 - Hyperlipidemia, unspecified, E87.6 - Hypokalemia Complete Blood Count Auto Diff 4 Months E78.5 - Hyperlipidemia, unspecified, E87.6 - Hypokalemia, I10 - Essential (primary) hypertension, R73.9 - Hyperglycemia, unspecified, R74.8 - Abnormal levels of other serum enzymes, Z00.00 - Encounter for general adult medical examination without abnormal findings Lipid Panel 4 Months E78.5 - Hyperlipidemia, unspecified, E87.6 - Hypokalemia, I10 - Essential (primary) hypertension, R73.9 - Hyperglycemia, unspecified, R74.8 - Abnormal levels of other serum enzymes, Z00.00 - Encounter for general adult medical examination without abnormal findings TSH reflex Free T4 4 Months E78.5 - Hyperlipidemia, unspecified, E87.6 - Hypokalemia, I10 - Essential (primary) hypertension, R73.9 - Hyperglycemia, unspecified, R74.8 - Abnormal levels of other serum enzymes, Z00.00 - Encounter for general adult medical examination without abnormal findings Magnesium 02/27/24 E78.5 - Hyperlipidemia, unspecified, E87.6 - Hypokalemia, I10 - Essential (primary) hypertension, R73.9 - Hyperglycemia, unspecified, R74.8 - Abnormal levels of other serum enzymes, Z00.00 - Encounter for general adult medical examination without abnormal findings Basic Metabolic Panel 02/27/24 E87.6 - Hypokalemia US abdomen limited Today R74.8 - Abnormal levels of other serum enzymes Comprehensive [place]. Panel Fast 4 Months E78.5 - Hyperlipidemia, unspecified, E87.6 - Hypokalemia, I10 - Essential (primary) hypertension, R73.9 - Hyperglycemia, unspecified, R74.8 - Abnormal levels of other serum enzymes, Z00.00 - Encounter for general adult medical examination without abnormal findings PSA,Total (Free>4and<10) 4 Months I10 - Essential (primary) hypertension, Z00.00 - Encounter for general adult medical examination without abnormal findings Medications: New potassium chloride ER 15 mEq PO DAILY 7 tabs 0RF Refilled triamterene-hydrochlorothiazid 37.5-25 mg 1 tab PO DAILY 90 tabs 3RF amlodipine-benazepril 5-40 mg 1 cap PO DAILY 90 caps 3RF Discontinued rosuvastatin Discontinued Reason: Duplicate 10 mg PO DAILY 90 tabs 3RF
[2024-02-22 09:31] VITALS: BP 130/80; PULSE 83; O2SAT 98; BMI 30.7
== END 2024-02-22 10:05 | disposition home or self-care (01) ==
PROVIDERS: PCP Internal Medicine; Visit Provider Internal Medicine
DX: E87.6 Hypokalemia (principal); R74.8 Abnormal levels of other serum enzymes; E78.5 Hyperlipidemia, unspecified

== ENCOUNTER → 2024-02-22 09:24 | Outpatient (BNVA) | payer OTHER, SELFPAY | PROVIDERS: PCP Internal Medicine; Visit Provider Internal Medicine | DX: E87.6 Hypokalemia (principal); R74.8 Abnormal levels of other serum enzymes; E78.5 Hyperlipidemia, unspecified | CPT/HCPCS: 99212 ==

== ENCOUNTER 2024-02-27 08:59 | Outpatient (REF) | payer OTHER, SELFPAY ==
[2024-02-27 11:15] LABS: Anion Gap 8 (12-20); Blood Urea Nitrogen 22 mg/dL (9-16); Calcium 8.4 mg/dL (8.4-10.2); Carbon Dioxide 30 mmol/L (22-29); Chloride 107 mmol/L (96-108); Estimated Glomerular Filt Rate > 60; Glucose Random 113 mg/dL (60-115); Magnesium 2.2 mg/dL (1.6-2.6); Sodium 141 mmol/L (135-145)
== END 2024-02-27 09:00 | disposition home or self-care (01) ==
LOC: HO.HMGCLDS 08:59
PROVIDERS: PCP Internal Medicine; Visit Provider Internal Medicine
DX: Z00.00 Encounter for general adult medical examination without abnormal findings (principal); E87.6 Hypokalemia; R74.8 Abnormal levels of other serum enzymes; I10 Essential (primary) hypertension; R73.9 Hyperglycemia, unspecified; E78.5 Hyperlipidemia, unspecified
CPT/HCPCS: 36415; 80048; 83735

== ENCOUNTER 2024-03-22 08:47 | Outpatient (REF) | payer OTHER, SELFPAY ==
--- NOTE | ~2024-03-22 | US_ITS ---
EXAMINATION: US ABDOMEN LIMITED CLINICAL INFORMATION: Elevated liver enzymes.. COMPARISON: None available. TECHNIQUE: Real-time imaging of the right upper quadrant abdominal viscera. FINDINGS: PANCREAS: Visualized portions are unremarkable. LIVER: The liver is normal in size. The liver contour is normal. There is diffuse increased liver parenchymal echogenicity, consistent with hepatic steatosis. No focal hepatic lesion. There is no intrahepatic biliary duct dilatation seen. GALLBLADDER: The gallbladder is physiologically distended without evidence of stones, sludge, polyps, wall thickening or pericholecystic fluid. COMMON BILE DUCT: Normal in caliber measuring 0.26 cm in diameter. RIGHT KIDNEY: No hydronephrosis. No renal calculi or focal parenchymal lesions. The kidney measures 12.5 cm in maximum dimension. FREE FLUID: None. US/US abdomen limited IMPRESSION: 1. Mildly echogenic liver suggesting hepatic steatosis and/or underlying hepatocellular disease. No focal lesions seen. 2. The remainder of the exam is normal. Electronically signed by: Adrien Elmore MD 03/22/2024 09:24 AM ERNESTINA
== END 2024-03-22 08:48 | disposition home or self-care (01) ==
LOC: HO.HMGCX 08:47
PROVIDERS: PCP Internal Medicine; Visit Provider Internal Medicine
DX: R74.8 Abnormal levels of other serum enzymes (principal)
CPT/HCPCS: 76705

== ENCOUNTER → 2024-03-22 08:54 | Outpatient (BNV) | payer OTHER, SELFPAY | PROVIDERS: PCP Internal Medicine; Visit Provider Radiology Diagnostic Radiology | DX: R74.01 Elevation of levels of liver transaminase levels (principal) | CPT/HCPCS: 76705 ==

== ENCOUNTER 2024-04-17 08:25 | Outpatient (REF) | payer OTHER, SELFPAY ==
--- OUTSIDE RECORDS SUMMARY | 2024-04-17 10:16 | XMS_ITS | Clinical Summary ---
Author Organization [facility] Address [address] [place] [address] Care Team Providers Care Director Of Marketing And Promotions Name Role Phone Earline Saucedo MD Primary Care Provider [phone] Surgical History Surgery Date Site/Laterality Comments KNEE SURGERY PROCEDURE:KNEE SURGERY;COMMENT:scope Medical History Medical History Date Comments Hypertension DX:Hypertension Family History Medical History Relation Name Comments Diabetes Mother Hypertension Mother Relation Name Status Comments Mother Social History Tobacco Use Types Packs/Day Years Used Date Smoking Tobacco: Former Smokeless Tobacco: Never Alcohol Use Standard Drinks/Week Comments Yes 0 (1 standard drink = 0.6 oz pur e alcohol) Sex and Gender Information Value Date Recorded Sex Assigned at Not on file Legal Sex Male 11:47 PM EST Gender Identity Not on file Sexual Orientation Not on file Obstetrics History Plan of Treatment Health Maintenance Due Date Last Done Comments DTaP,Tdap,and Td Vaccines (1 - Tdap) 1969 Pneumococcal Vaccine: 50+ Ye ars (1 of 1 - PCV) 2012 Zoster Vaccines (1 of 2) 2012 Cholesterol Screening (Lipid Panel) 04/05/2023 Colorectal Cancer Screening: Colonoscopy 04/05/2023 Depression Screening 04/05/2023 HIV Screening 04/05/2023 Hepatitis C Screening 04/05/2023 Social Influencers of Health Screening 04/05/2023 COVID-19 Vaccine (1 - 2023-2 5 season) 2023 Influenza Vaccine (#1) 2023 RSV Immunization Patients 60 + Years Old (1 - 1-dose 75+ series) 2037 HIB Vaccines Aged Out No longer eligi ble based on patient's age to complete this topic HPV Vaccines Aged Out No longer eligi ble based on patient's age to complete this topic Hepatitis A Vaccines Aged Out No long er eligible based on patient's age to complete this topic Hepatitis B Vaccines Aged Out No long er eligible based on patient's age to complete this topic IPV Vaccines Aged Out No longer eligi ble based on patient's age to complete this topic MMR Vaccines Aged Out No longer eligi ble based on patient's age to complete this topic Meningococcal ACWY Vaccine Aged Out N o longer eligible based on patient's age to complete this topic Meningococcal B Vacine Aged Out No lo nger eligible based on patient's age to complete this topic Pneumococcal Vaccine: Pediat rics (0 to 5 Years) and At-Risk Patients (6 to 64 Years) Aged Out No longer eligible b ased on patient's age to complete this topic RSV Immunization Patients Un robin 20 months Aged Out No longer eligible b ased on patient's age to complete this topic Varicella Vaccines Aged Out No longer eligible based on patient's age to complete this topic Care Teams Director Of Marketing And Promotions Relationship Specialty Start Date End Date Earline Saucedo MD PCP - General Electronics Hardware Design Engineer 01/16/18
--- OUTSIDE RECORDS SUMMARY | 2024-04-17 10:17 | XMS_ITS | Clinical Summary ---
Author Organization [facility] Address [address] [place] [address] Care Team Providers Care Rubbing Bed Operator Name Role Phone Earline Saucedo MD Primary Care Provider [phone] Allergies No known active allergies Medications Medication Sig Dispensed Refills Start Date End Date Status lisinopril (PRINIVIL,ZESTRIL) tablet 40 mg TK 1 T PO QD 2 01/09/2018 Active Active Problems Problem Noted Date Diagnosed Date Closed anterior dislocation of left elbow 2017 Closed fracture of proximal end of left radius with routine healing 01/19/2018 Family History Medical History Relation Name Comments Diabetes Mother Hypertension Mother Relation Name Status Comments Mother Social History Tobacco Use Types Packs/Day Years Used Date Smoking Tobacco: Former Smokeless Tobacco: Never Alcohol Use Standard Drinks/Week Comments Yes 0 (1 standard drink = 0.6 oz pur e alcohol) Sex and Gender Information Value Date Recorded Sex Assigned at Not on file Gender Identity Not on file Sexual Orientation Not on file Last Filed Vital Signs Vital Sign Reading Time Taken Comments Blood Pressure - - Pulse - - Temperature - - Respiratory Rate - - Oxygen Saturation - - Inhaled Oxygen Concentration - - Weight 79.4 kg (175 lb) 01/30/2018 10:29 AM EST Height 172.7 cm (5' 8 ) 01/30/2018 10:29 AM EST Body Mass Index 26.61 01/30/2018 10:29 AM EST Plan of Treatment Health Maintenance Due Date Last Done Comments Hepatitis C Screening 1962 COVID-19 Vaccine (#1) 05/10/1963 Depression Screening 1974 Preventative Health Evaluation 1980 DTap / Tdap / Td (1 - Tdap) 1981 Colon Cancer Screening (Colonoscopy) 11/10/2007 Shingrix-Zoster Vaccine (1 of 2) 2012 Influenza Vaccine (#1) 2023 RSV Adult > 60+ Yrs or Pregn ant (1 - 1-dose 75+ series) 2037 Hepatitis B Vaccines Aged Out No long er eligible based on patient's age to complete this topic Pneumococcal Vaccine Aged Out No long er eligible based on patient's age to complete this topic RSV Ped < 20 months Aged Out No longe r eligible based on patient's age to complete this topic Care Teams Rubbing Bed Operator Relationship Specialty Start Date End Date Earline Saucedo MD [address] [place] [address] PCP - General Last Trimmer 01/16/18
[2024-04-17 10:18] LABS: MANUAL DIFF FLAG NO
[2024-04-17 10:31] LABS: Basophils Absolute Auto 0.1 X10*3/uL (0.0-0.2); Basophils Percent Auto 0.5 % (0-2); Eosinophils Absolute Auto 0.1 X10*3/uL (0.0-0.4); Eosinophils Percent Auto 1.3 % (0-4); Hematocrit 40.7 % (42.0-52.0); Hemoglobin 13.7 g/dl (14.0-18.0); Imm Gran Abs Auto 0.04 X10*3/uL (0.00-0.03); Imm Gran Pct Auto 0.4 % (0.0-0.4); Lymphocytes Percent Auto 10.5 % (20-40); Mean Corpuscular HGB Conc 33.7 g/dl (31.0-36.0); Mean Corpuscular Hemoglobin 31.3 pg (27.0-33.0); Mean Corpuscular Volume 92.9 fL (80.0-98.0); Monocytes Absolute Auto 0.8 X10*3/uL (0.1-1.2); Monocytes Percent Auto 7.9 % (2-11); Neutrophils Absolute Auto 7.6 x10*3/uL (2.0-8.3); Neutrophils Percent Auto 79.4 % (45-73); Platelet Count 341 X10*3/uL (160-400); Red Blood Count 4.38 X10*6/uL (4.60-5.80); Red Cell Distribution Width 11.3 % (11.0-16.0); White Blood Count 9.6 X10*3/uL (4.8-10.8)
[2024-04-17 11:11] LABS: Alanine Aminotransferase 31 U/L (0-40); Albumin Level 4.1 g/dL (3.5-5.0); Alkaline Phosphatase 46 U/L (39-117); Anion Gap 11 (12-20); Aspartate Amino Transferase 18 U/L (5-37); Bilirubin Total 0.7 mg/dL (0.0-1.0); Blood Urea Nitrogen 17 mg/dL (9-16); C Reactive Protein 6.61 mg/dL (< or = 0.50); Calcium 9.3 mg/dL (8.4-10.2); Carbon Dioxide 28 mmol/L (22-29); Chloride 107 mmol/L (96-108); Estimated Glomerular Filt Rate > 60; Glucose Random 117 mg/dL (60-115); Magnesium 2.1 mg/dL (1.6-2.6); Potassium 3.8 mmol/L (3.3-5.1); Sodium 142 mmol/L (135-145); Total Protein 7.8 g/dL (6.5-8.0)
== END 2024-04-17 08:26 | disposition home or self-care (01) ==
LOC: HO.HMGCLDS 08:25
PROVIDERS: PCP Internal Medicine; Visit Provider Internal Medicine
DX: E87.6 Hypokalemia (principal); R74.8 Abnormal levels of other serum enzymes
CPT/HCPCS: 36415; 80053; 82550; 83735; 85025; 86140

== ENCOUNTER 2024-04-17 08:32 | Outpatient (AMB) | payer OTHER, SELFPAY ==
[2024-04-17 08:26] VITALS: BP 122/74; PULSE 94; RESP 20; TEMP 36.8; O2SAT 99; BMI 30.5
--- NOTE | 2024-04-17 08:26 | MHC.PC.OV ---
Vital Signs 04/17/24 08:26 Height 5 ft 7 in Weight 195 lb BMI 30.5 BP 122/74 Blood Pressure Location Rt brachial Position Sitting Respiration 20 Pulse 94 Pulse Source Pulse Oximeter Temp 98.2 F Temp Source Oral Pulse Oximetry (%) 99 Oxygen Delivery Method Room Air Intake Visit Reasons: pain in legs and feet Intake Note: Pt is here today for a sick visit. Pt c/o pain in lower legs and swelling. Pt states that he has been using bike few times a week. Allergies aspirin Adverse Reaction (Verified 04/17/24 08:27) upset stomach Medication List - Last Reconciled 04/17/24 by Earline Saucedo MD amlodipine-benazepril 5-40 mg 1 cap PO DAILY omega-3 fatty acids 1,000 mg PO DAILY potassium chloride ER 15 mEq PO DAILY triamterene-hydrochlorothiazid 37.5-25 mg 1 tab PO DAILY Tobacco use date assessed: 04/17/24 Dental Screening Dental Screen Date: 04/17/24 Did you have a dental visit in the last 12 months?: Yes Did you have a dental problem in the last 6 months where you did not have access to dental care?: No Was dental information given to patient?: Patient has dentist HPI pain in legs and feet HPI Details Patient complains of bilateral leg and feet pain for 2 weeks started after patient exercised intensively on a bike for 2 weeks. The pain is worse when patient wakes up in the morning. He has difficulty standing up because of bilateral feet pain. The symptoms improve once patient starts walking. He has been taking ibuprofen with some relief. Patient complains of left lower extremity swelling and erythema for 2 days and had a fever and chills last night. He denies sore throat cough congestion GI or complaints. [facility] Medical History Annual physical exam Hyperglycemia Hyperlipidemia HTN (hypertension) Surgical History H/O colonoscopy Social History Housing: House Patient Tobacco Use Status: Former Tobacco user Years Smoked: 20 yrs e-Cigarette/Vaping Use: Never Used service: No Current occupational status: employed Cognitive needs: No Hearing needs: No Vision needs: Yes Questionnaire PHQ-9 Over the last 2 weeks, how often have you been bothered by any of the following problems? 1. Little interest or pleasure in doing things: not at all 2. Feeling down, depressed, or hopeless: not at all 3. Trouble falling or staying asleep, or sleeping too much: not at all 4. Feeling tired or having little energy: not at all 5. Poor appetite or overeating: not at all 6. Feeling bad about yourself - or that you are a failure or have let yourself or your family down: not at all 7. Trouble concentrating on things, such as reading the newspaper or watching television: not at all 8. Moving or speaking so slowly that other people could have noticed. Or the opposite - being so fidgety or restless that you have been moving around a lot more than usual: not at all 9. Thoughts that you would be better off or of hurting yourself in some way: not at all Total score: 0 Depression Screening Interpretation: Negative Depression Screening Done: Yes 13741 - PHQ-9 Billing: Yes Source: Developed by Drs. Jethro Keating, Ashley Suero, Brendan Weems and colleagues, with an educational yusef from [employer]. Thrive Questionnaire Date Thrive assessed: 04/17/24 I am a: Patient What is your living situation today?: I have a steady place to live Within the past 12 months, did the food you bought not last and you didn't have the money to get more?: Never true Within the past 12 months, did you worry whether your food would run out before you got money to buy more?: Never true Do you have trouble paying for medicines?: No Do you have trouble getting transportation to medical appointments?: No Do you have trouble paying your heating and electricity bill?: No Do you have trouble taking care of your child, family member or friend?: No Do you have trouble with day-to-day activities such as bathing, preparing meals, shopping, managing finances, etc.?: No Are you currently unemployed and looking for a job?: No Are you interested in more education?: No THRIVE Score: 0 ASIF-7 AMB Questionnaire ASIF-7 Date ASIF - 7 assessed: 04/17/24 Feeling nervous, anxious, or on edge: 0 = Not at all Not being able to stop or control worryin = Not at all Worrying too much about different things: 0 = Not at all Trouble relaxin = Not at all Being so restless that it is hard to sit still: 0 = Not at all Becoming easily annoyed or irritable: 0 = Not at all Feeling afraid as if something awful might happen: 0 = Not at all Total ASIF-7 score (0-4 normal; 5-9 mild; 10-14 moderate; 15-21 severe): 0 Source: Developed by Drs. Jethro Keating, Ashley Suero, Brendan Weems and colleagues, with an educational yusef from [employer]. ASIF-7 Assessment Billing ASIF-7 Assessment Tool: ASIF-7 Assessment 65919 Review of Systems Const All systems reviewed & are unremarkable except as noted in HPI and below Eyes Reports no additional complaints ENT Reports no additional complaints Card Reports no additional complaints Resp Reports no additional complaints GI Reports no additional complaints Reports no additional complaints Physical exam (Primary Care) Vital Signs: Last Vital Signs Temp 98.2 F 04/17/24 08:26 Pulse 94 04/17/24 08:26 Resp 20 04/17/24 08:26 BP 122/74 04/17/24 08:26 Pulse Ox 99 04/17/24 08:26 Oxygen Delivery Method Room Air 04/17/24 08:26 BMI result Body Mass Index 30.5 Tobacco/Smoking Status: Tobacco use Status Tobacco use date assessed 04/17/24 04/17/24 08:32 Patient Tobacco Use Status Former Tobacco user 04/17/24 08:32 e-Cigarette/Vaping Use Never Used 04/17/24 08:32 PHQ-9: PHQ-9 Score PHQ-9: Total score 0 04/17/24 08:32 Depression Screening Interpretation: Negative Thrive Assessment: Date of Thrive Assessment Date Thrive assessed 04/17/24 04/17/24 08:32 Const General: no acute distress HENMT Head: Yes normal to inspection Throat: Yes posterior oropharynx normal Neck Neck: Yes supple Resp Effort & Inspection: normal respiratory effort Auscultation: clear to auscultation bilaterally Cardio Rhythm: regular rhythm Heart sounds: S1 normal heart sound present and S2 normal heart sound present GI Inspection: Yes normal to inspection Palpation (GI): Soft to palpation Extrem Other: 2+ pitting edema erythema and warmth and tenderness of the left calf, there is diffuse muscle tenderness bilateral thighs and calves, both knees and hips with a full range of motion and no joint tenderness erythema or warmth Coding Level of Care Code Est Pt Level 4 (02236) Diagnoses Hypokalemia E87.6 Localized swelling of left lower extremity R22.42 Myalgia M79.10 HTN (hypertension) I10 Additional Codes ASIF-7 Assessment Billing - ASIF-7 Assessment Tool: ASIF-7 Assessment 88886 ([id number]) PHQ-9 - 70447 - PHQ-9 Billing: Yes ([id number]) Assessment & Plan Assessment & Plan (1) Hypokalemia: Code(s): E87.6 - Hypokalemia Category: Medical Plan: Obtain labs today (2) Localized swelling of left lower extremity: Code(s): R22.42 - Localized swelling, mass and lump, left lower limb Category: Medical Plan: Check Doppler to rule out DVT, Augmentin for 10 days is prescribed for cellulitis. Patient was advised to elevate lower extremities. (3) Myalgia: Code(s): M79.10 - Myalgia, unspecified site Category: Medical Plan: Check CPK and sed rate, meloxicam for 10 days is prescribed. (4) HTN (hypertension): Code(s): I10 - Essential (primary) hypertension Category: Medical Plan: Continue current medications Orders: Orders Comprehensive Met. Panel Today E87.6 - Hypokalemia, R74.8 - Abnormal levels of other serum enzymes Creatine Kinase Total Today E87.6 - Hypokalemia, R74.8 - Abnormal levels of other serum enzymes C Reactive Protein Today E87.6 - Hypokalemia, R74.8 - Abnormal levels of other serum enzymes Complete Blood Count Auto Diff Today E87.6 - Hypokalemia, R74.8 - Abnormal levels of other serum enzymes Magnesium Today E87.6 - Hypokalemia, R74.8 - Abnormal levels of other serum enzymes venous duplex LE LT Today R22.42 - Localized swelling, mass and lump, left lower limb Medications: New meloxicam 15 mg PO DAILY 20 tabs 0RF amoxicillin-pot clavulanate 875-125 mg 1 tab PO BID 20 tabs 0RF
== END 2024-04-17 09:05 | disposition home or self-care (01) ==
PROVIDERS: PCP Internal Medicine; Visit Provider Internal Medicine
DX: E87.6 Hypokalemia (principal); R22.42 Localized swelling, mass and lump, left lower limb; M79.10 Myalgia, unspecified site; I10 Essential (primary) hypertension

== ENCOUNTER 2024-04-17 15:29 | Outpatient (REF) | payer OTHER, SELFPAY ==
--- NOTE | ~2024-04-17 | US_ITS ---
EXAMINATION: US TRIPLEX LOWER EXTREMITY, LEFT CLINICAL INFORMATION: Swelling, pain, lump left mid lateral calf. COMPARISON: None available. TECHNIQUE: Color-flow triplex imaging with spectral analysis and compression Doppler were performed on the left lower extremity. FINDINGS: Respiratory variation, normal compression and augmented flow are noted throughout the left lower extremity. The visualized common femoral vein, superficial femoral vein, profunda femoral vein, popliteal vein and midcalf peroneal and posterior tibial venous segments show no evidence of deep venous thrombosis. There is a small Moreno's cyst measuring 1.7 x 0.8 x 1.0 cm. No sonographic abnormality in the area of pain left mid lateral calf. US/US venous duplex LE LT IMPRESSION: 1. No evidence of deep venous thrombosis involving the left lower extremity. 2. There is a small Moreno's cyst measuring 1.7 x 0.8 x 1.0 cm. 3. No sonographic abnormality in the area of pain left mid lateral calf. Electronically signed by: Adrien Elmore MD 04/17/2024 04:22 PM ERNESTINA
--- OUTSIDE RECORDS SUMMARY | 2024-04-17 16:07 | XMS_ITS | Clinical Summary ---
Author Organization [facility] Address [address] [place] [address] Care Team Providers Care Complaint Investigator Name Role Phone Earline Saucedo MD Primary Care Provider [phone] Surgical History Surgery Date Site/Laterality Comments KNEE [...] age to complete this topic Care Teams Complaint Investigator Relationship Specialty Start Date End Date Earline Saucedo MD PCP - General Diesel Fitter Mechanic 01/16/18
--- OUTSIDE RECORDS SUMMARY | 2024-04-17 16:07 | XMS_ITS | Clinical Summary ---
Author Organization [facility] Address [address] [place] [address] Care Team Providers Care Swager Operator Name Role Phone Earline Saucedo MD Primary Care Provider [phone] Allergies No known active allergies Medications Medication [...] age to complete this topic Care Teams Swager Operator Relationship Specialty Start Date End Date Earline Saucedo MD [address] [place] [address] PCP - General Warehouse Delivery Manager 01/16/18
== END 2024-04-17 15:30 | disposition home or self-care (01) ==
LOC: HO.US 15:29
PROVIDERS: Visit Provider Internal Medicine
DX: R22.42 Localized swelling, mass and lump, left lower limb (principal); E87.6 Hypokalemia; M79.10 Myalgia, unspecified site; I10 Essential (primary) hypertension
CPT/HCPCS: 93971; 96127; 99212

== ENCOUNTER → 2024-04-17 15:31 | Outpatient (BNV) | payer OTHER, SELFPAY | PROVIDERS: Visit Provider Radiology Diagnostic Radiology | DX: R22.42 Localized swelling, mass and lump, left lower limb (principal); M71.22 Synovial cyst of popliteal space [Baker], left knee | CPT/HCPCS: 93971 ==

== ENCOUNTER 2024-04-25 08:45 | Outpatient (REF) | payer OTHER, SELFPAY ==
--- OUTSIDE RECORDS SUMMARY | 2024-04-25 09:53 | XMS_ITS | Clinical Summary ---
Author Organization [facility] Address [address] [place] [address] Care Team Providers Care Outside Plant Engineer Name Role Phone Earline Saucedo MD Primary Care Provider [phone] Allergies No known active allergies Medications Medication [...] age to complete this topic Care Teams Outside Plant Engineer Relationship Specialty Start Date End Date Earline Saucedo MD [address] [place] [address] PCP - General Game Tester 01/16/18
--- OUTSIDE RECORDS SUMMARY | 2024-04-25 09:53 | XMS_ITS | Clinical Summary ---
Author Organization [facility] Address [address] [place] [address] Care Team Providers Care Integrity Director Name Role Phone Earline Saucedo MD Primary Care Provider [phone] Surgical History Surgery Date Site/Laterality Comments KNEE [...] age to complete this topic Care Teams Integrity Director Relationship Specialty Start Date End Date Earline Saucedo MD PCP - General Tool Design Drafter 01/16/18
[2024-04-25 13:12] LABS: Appearance Urine Clear; Color Urine Yellow; Glucose Urine UA Negative (Negative); Leukocyte Esterase Urine Negative (Negative); Nitrite Urine Negative (Negative); Specific Gravity - Urine 1.025 (1.005-1.025); Urine Blood Negative (Negative); Urine Ketones Negative (Negative); Urine Protein Negative (Neg-Trace)
[2024-04-25 13:16] LABS: Bacteria Urine None Seen (None Seen); Hyaline Casts Urine 0-2 /LPF (0-2); RBC Urine 0-2 /HPF (0-2); Squamous Epithelial Cell Urine 0-2 /HPF (0-2); WBC Urine 0-5 /HPF (0-5)
[2024-04-25 13:57] LABS: Anion Gap 11 (12-20); Blood Urea Nitrogen 14 mg/dL (9-16); Calcium 9.1 mg/dL (8.4-10.2); Carbon Dioxide 27 mmol/L (22-29); Chloride 108 mmol/L (96-108); Estimated Glomerular Filt Rate > 60; Glucose Random 92 mg/dL (60-115); Sodium 142 mmol/L (135-145)
[2024-04-25 14:29] LABS: Erythrocyte Sedimentation Rate 51 MM/HR (0-15)
[2024-04-26 09:49] LABS: Lyme Abs Screen <0.90 index
[2024-04-29 05:33] LABS: IgA 410 mg/dL (70-320); IgG 1219 mg/dL (600-1540); IgM 98 mg/dL (50-300)
== END 2024-04-25 08:46 | disposition home or self-care (01) ==
LOC: HO.HMGCLDS 08:45
PROVIDERS: PCP Internal Medicine; Visit Provider Internal Medicine
DX: R60.9 Edema, unspecified (principal); M79.10 Myalgia, unspecified site; I10 Essential (primary) hypertension
CPT/HCPCS: 36415; 80048; 81001; 82550; 82784; 85652; 86334; 86617; 86618; 99212

== ENCOUNTER 2024-04-25 08:45 | Outpatient (AMB) | payer OTHER, SELFPAY ==
[2024-04-25 08:47] VITALS: BP 118/70; PULSE 89; RESP 18; TEMP 37; O2SAT 98; BMI 30.1
--- NOTE | 2024-04-25 08:47 | A.OFFPC_ITS ---
Vital Signs 04/25/24 08:47 Height 5 ft 7 in Weight 192 lb BMI 30.1 BP 118/70 Blood Pressure Location Lt brachial Position Sitting Respiration 18 Pulse 89 Pulse Source Pulse Oximeter Temp 98.6 F Temp Source Oral Pulse Oximetry (%) 98 Oxygen Delivery Method Room Air Intake Visit Reasons: Follow up Intake Note: Pt is here today for a follow up visit on pain and swelling in his legs. Pt states that for the last 2 days he had a fever. Pt states that he still has swelling in his legs and feet. Allergies aspirin Adverse Reaction (Verified 04/25/24 08:49) upset stomach Medication List - Last Reconciled 04/25/24 by Earline Saucedo MD amlodipine-benazepril 5-40 mg 1 cap PO DAILY amoxicillin-pot clavulanate 875-125 mg 1 tab PO BID furosemide (Lasix) 40 mg PO DAILY meloxicam 15 mg PO DAILY omega-3 fatty acids 1,000 mg PO DAILY potassium chloride ER 15 mEq PO DAILY triamterene-hydrochlorothiazid 37.5-25 mg 1 tab PO DAILY Tobacco use date assessed: 04/17/24 Dental Screening Dental Screen Date: 04/17/24 HPI Follow up HPI Details Patient presents for the follow-up of lower extremities pain and swelling. He has been taking Augmentin had negative venous ultrasound for DVT. The pain has been improving but patient still reports a swelling of both lower extremity slightly better after rest at night but not completely resolved. Hypertension is controlled on current medications. Patient reports episodes of low-grade fever but denies sore throat congestion cough GI or complaints. [facility] Medical History Annual physical exam Hyperglycemia Hyperlipidemia HTN (hypertension) Surgical History H/O colonoscopy Social History Housing: House Patient Tobacco Use Status: Former Tobacco user Years Smoked: 20 yrs e-Cigarette/Vaping Use: Never Used service: No Current occupational status: employed Cognitive needs: No Hearing needs: No Vision needs: Yes Questionnaire Thrive Questionnaire Date Thrive assessed: 04/17/24 ASIF-7 AMB Questionnaire ASIF-7 Date ASIF - 7 assessed: 04/17/24 Source: Developed by Drs. Jethro Keating, Ashley Suero, Brendan Weems and colleagues, with an educational yusef from [employer]. Review of Systems Const All systems reviewed & are unremarkable except as noted in HPI and below Eyes Reports no additional complaints ENT Reports no additional complaints Card Reports no additional complaints Resp Reports no additional complaints GI Reports no additional complaints Reports no additional complaints Physical exam (Primary Care) Vital Signs: Last Vital Signs Temp 98.6 F 04/25/24 08:47 Pulse 89 04/25/24 08:47 Resp 18 04/25/24 08:47 BP 118/70 04/25/24 08:47 Pulse Ox 98 04/25/24 08:47 Oxygen Delivery Method Room Air 04/25/24 08:47 BMI result Body Mass Index 30.1 Tobacco/Smoking Status: Tobacco use Status Tobacco use date assessed 04/17/24 04/25/24 08:52 Patient Tobacco Use Status Former Tobacco user 04/25/24 08:52 e-Cigarette/Vaping Use Never Used 04/25/24 08:52 Thrive Assessment: Date of Thrive Assessment Date Thrive assessed 04/17/24 04/25/24 08:52 Const General: no acute distress HENMT Head: Yes normal to inspection Throat: Yes posterior oropharynx normal Neck Neck: Yes no lymphadenopathy and Yes supple Resp Effort & Inspection: normal respiratory effort Auscultation: clear to auscultation bilaterally Cardio Rhythm: regular rhythm Heart sounds: S1 normal heart sound present and S2 normal heart sound present GI Inspection: Yes normal to inspection Palpation (GI): Soft to palpation Percussion: Yes normal to percussion Auscultation: normal bowel sounds Extrem Other: 2+ pitting edema of lower extremities no erythema warmth or tenderness Coding Level of Care Code Est Pt Level 3 (25449) Diagnoses Edema R60.9 HTN (hypertension) I10 Assessment & Plan Assessment & Plan (1) Edema: Code(s): R60.9 - Edema, unspecified Category: Medical Plan: Repeat basic metabolic panel and urinalysis, try of furosemide 20 mg daily. Patient was advised to elevate lower extremities, continue Augmentin for the course of cellulitis treatment, follow-up in 1 week (2) HTN (hypertension): Code(s): I10 - Essential (primary) hypertension Category: Medical Plan: Continue current medications Orders: Orders UA w Microscopic Today M79.10 - Myalgia, unspecified site, R60.9 - Edema, unspecified Basic Metabolic Panel Today M79.10 - Myalgia, unspecified site, R60.9 - Edema, unspecified Immunofixation Pnl, Serum Today M79.10 - Myalgia, unspecified site, R60.9 - Edema, unspecified Erythrocyte Sedimentation Rate Today M79.10 - Myalgia, unspecified site, R60.9 - Edema, unspecified Creatine Kinase Total Today M79.10 - Myalgia, unspecified site, R60.9 - Edema, unspecified Lyme IgG/IgM w/reflex to WB Today M79.10 - Myalgia, unspecified site Medications: New furosemide (Lasix) 20 mg PO DAILY 20 tabs 0RF
--- OUTSIDE RECORDS SUMMARY | 2024-04-25 08:49 | XMS_ITS | Clinical Summary ---
Author Organization [facility] Address [address] [place] [address] Care Team Providers Care Cognos Tm1 Developer Name Role Phone Earline Saucedo MD Primary Care Provider [phone] Allergies No known active allergies Medications Medication [...] age to complete this topic Care Teams Cognos Tm1 Developer Relationship Specialty Start Date End Date Earline Saucedo MD [address] [place] [address] PCP - General Plumber Pipe Fitting 01/16/18
--- OUTSIDE RECORDS SUMMARY | 2024-04-25 08:49 | XMS_ITS | Clinical Summary ---
Author Organization [facility] Address [address] [place] [address] Care Team Providers Care Opal Polisher Name Role Phone Earline Saucedo MD Primary Care Provider [phone] Surgical History Surgery Date Site/Laterality Comments KNEE [...] Comments DTaP,Tdap,and Td Vaccines (1 - Tdap) 1981 Pneumococcal Vaccine: 50+ Ye ars (1 of [...] age to complete this topic Care Teams Opal Polisher Relationship Specialty Start Date End Date Earline Saucedo MD PCP - General Post Acute Care Nurse Practitioner 01/16/18
--- OUTSIDE RECORDS SUMMARY | 2024-04-25 08:50 | XMS_ITS | Data Portability ---
Author Organization [place] [facility] [place] Address [address] [place] [address] Care Team Providers Care Feed In Worker Name Role Phone BILLORLANDOReinaldoSTEVENSON Primary Care Provider [phone] Assessment Encounter Date Assessment Date Assessment LastModified [...] in detail. We discussed other modalities including trlv-leq-xpwuqzh analgesia and topicals as well as therapy. [...] knee, 4 or more view 2022 [address] [place] [address] [facility], [address], [address], [place], [address], 3 15:02:12 Medication Orders Kenalog 40 mg/mL suspension for injection 2022 [address]23 [place] [address] [facility], [address] [place], [address], 3 10:20:12 lidocaine (PF) 10 mg/mL (1 %) injection solution 2022 [address] [place] [address] [facility], [address] [place], [address], 3 10:20:12 Patient TargetsNo targets recorded. Patient Instructions Encounter Date Encounter Id Patient Instructions Last Modified By Organization Details Last Modified Time 10/05/2022 [id number] You have been provided with a cortisone [...] Details Recorded Time Derangement of medial meniscus 440643966 Active 2022 BETTY UNDERWOOD PA-C [address], [place], [address], [place] [facility] 3 10:19:51 Problem Notes None recorded. Procedures Surgical History Date Name Laterality Status Provider Name and Address Organization Details Recorded Time 3 Knee Joint/Bursa Asp & Inj completed BETTY UNDERWOOD PA-C [address], [place], [address], [place] [facility] 10/05/2022 10:16:54 Knee Surgery completed [facility] 10/05/2022 10:03:09 Imaging Results None recorded. [...] Updated DateTime 10/05/2022 172.72 cm 27.4 kg/m2 76678.63 g [place]et [place] [facility], 10/05/2022 09:54:33 Social History Question Answer Notes LastModified by Organizat ion Details LastModified Time Tobacco Smoking Status Never 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 Information not available 09/27/2022 Do [...] Diagnosis/Indication Diagnosis SNOMED-CT Code Diagnosis ICD10 Code Diagnosis Note [id number] MD SARINA Lorashavon skinner [address] [place] [address] [address] [place] [address] 10/05/2022 09:26:25 10/05/2022 10:27:00 Pain of left knee joint 5325388337 32902 M25.562 Derangemen t of medial meniscus 713364030 M23.309 Health Concerns Section Related Observation LastModified by Organization Detai ls LastModified Time None Recorded Concern Status LastModified by Organization Details LastModified Time None Recorded Advance Directives Directive None Recorded Payers Encounter Date Sequence Insurance Name Policy Number Policy Dominguez Covered Member ID Dominguez Member ID Guarantor Name 10/05/2022 1 [facility] [id number] Arnav Milian [id number] Arnav Milian Notes Date Note Type [...] many years ago. BETTY UNDERWOOD PA-C [address] [facility] [address], [place], [address], [place] [facility] 10/05/2022 10:20:57
== END 2024-04-25 09:48 | disposition home or self-care (01) ==
PROVIDERS: PCP Internal Medicine; Visit Provider Internal Medicine
DX: R60.9 Edema, unspecified (principal); I10 Essential (primary) hypertension

== ENCOUNTER 2024-05-03 09:12 | Outpatient (AMB) | payer OTHER, SELFPAY ==
--- NOTE | 2024-05-03 09:12 | A.OFFPC_ITS ---
Vital Signs 05/03/24 09:13 Height 5 ft 7 in Weight 192 lb BMI 30.1 BP 124/70 Blood Pressure Location Rt brachial Position Sitting Respiration 18 Pulse 81 Pulse Source Pulse Oximeter Temp 98.2 F Temp Source Oral Pulse Oximetry (%) 98 Oxygen Delivery Method Room Air Intake Visit Reasons: 1 week follow up Intake Note: Pt is here today for 1 week follow up visit. Allergies aspirin Adverse Reaction (Verified 05/03/24 09:17) upset stomach Medication List - Last Reconciled 05/03/24 by Earline Saucedo MD amlodipine-benazepril 5-40 mg 1 cap PO DAILY furosemide (Lasix) 20 mg PO DAILY meloxicam 15 mg PO DAILY omega-3 fatty acids 1,000 mg PO DAILY potassium chloride ER 15 mEq PO DAILY triamterene-hydrochlorothiazid 37.5-25 mg 1 tab PO DAILY Tobacco use date assessed: 04/17/24 Dental Screening Dental Screen Date: 04/17/24 HPI 1 week follow up HPI Details Patient presents for the follow-up of lower extremity swelling improved after 1 week of furosemide. Hypertension is controlled on current medications. [facility] Medical History Annual physical exam Hyperglycemia Hyperlipidemia HTN (hypertension) Surgical History H/O colonoscopy Social History Housing: House Patient Tobacco Use Status: Former Tobacco user Years Smoked: 20 yrs e-Cigarette/Vaping Use: Never Used service: No Current occupational status: employed Cognitive needs: No Hearing needs: No Vision needs: Yes Questionnaire Thrive Questionnaire Date Thrive assessed: 04/17/24 ASIF-7 AMB Questionnaire ASIF-7 Date ASIF - 7 assessed: 04/17/24 Source: Developed by Drs. Jethro Keating, Ashley Suero, Brendan Weems and colleagues, with an educational yusef from [employer]. Review of Systems Const All systems reviewed & are unremarkable except as noted in HPI and below Eyes Reports no additional complaints ENT Reports no additional complaints Card Reports no additional complaints Resp Reports no additional complaints GI Reports no additional complaints Reports no additional complaints Physical exam (Primary Care) Vital Signs: Last Vital Signs Temp 98.2 F 05/03/24 09:13 Pulse 81 05/03/24 09:13 Resp 18 05/03/24 09:13 BP 124/70 05/03/24 09:13 Pulse Ox 98 05/03/24 09:13 Oxygen Delivery Method Room Air 05/03/24 09:13 BMI result Body Mass Index 30.1 Tobacco/Smoking Status: Tobacco use Status Tobacco use date assessed 04/17/24 05/03/24 09:17 Patient Tobacco Use Status Former Tobacco user 05/03/24 09:17 e-Cigarette/Vaping Use Never Used 05/03/24 09:17 Thrive Assessment: Date of Thrive Assessment Date Thrive assessed 04/17/24 05/03/24 09:17 Const General: no acute distress HENMT Throat: Yes posterior oropharynx normal Neck Neck: Yes no lymphadenopathy and Yes supple Resp Effort & Inspection: normal respiratory effort Auscultation: clear to auscultation bilaterally Cardio Rhythm: regular rhythm Heart sounds: S1 normal heart sound present and S2 normal heart sound present GI Inspection: Yes normal to inspection Palpation (GI): Soft to palpation Percussion: Yes normal to percussion Extrem Other: Trace pitting edema both lower extremitites, chronic venous stasis changes in both lower extremities, both ankles with full range of motion, no joint tenderness erythema warmth Coding Level of Care Code Est Pt Level 3 (81749) Diagnoses HTN (hypertension) I10 Hyperlipidemia E78.5 Localized swelling of left lower extremity R22.42 Assessment & Plan Assessment & Plan (1) HTN (hypertension): Code(s): I10 - Essential (primary) hypertension Category: Medical Plan: Continue current medications, check basic metabolic panel (2) Hyperlipidemia: Code(s): E78.5 - Hyperlipidemia, unspecified Category: Medical Plan: Continue low-cholesterol diet (3) Localized swelling of left lower extremity: Code(s): R22.42 - Localized swelling, mass and lump, left lower limb Category: Medical Plan: Continue furosemide every other day, compression leg wear discussed with the patient Orders: Orders Basic Metabolic Panel Today E78.5 - Hyperlipidemia, unspecified, I10 - Essential (primary) hypertension IRON PROFILE Today E78.5 - Hyperlipidemia, unspecified, I10 - Essential (primary) hypertension C Reactive Protein Today R22.42 - Localized swelling, mass and lump, left lower limb Complete Blood Count Auto Diff Today E78.5 - Hyperlipidemia, unspecified, I10 - Essential (primary) hypertension Medications: Refilled furosemide (Lasix) 20 mg PO DAILY 30 tabs 0RF Discontinued meloxicam Discontinued Reason: Doctor's Order 15 mg PO DAILY 20 tabs 0RF
[2024-05-03 09:13] VITALS: BP 124/70; PULSE 81; RESP 18; TEMP 36.8; O2SAT 98; BMI 30.1
--- OUTSIDE RECORDS SUMMARY | 2024-05-03 10:03 | XMS_ITS | Clinical Summary ---
Author Organization [facility] Address [address] [place] [address] Care Team Providers Care Manager Compensation Name Role Phone Earline Saucedo MD Primary Care Provider [phone] Surgical History Surgery Date Site/Laterality Comments KNEE [...] age to complete this topic Care Teams Manager Compensation Relationship Specialty Start Date End Date Earline Saucedo MD PCP - General Hydraulic Rock Drill Operator 01/16/18
--- OUTSIDE RECORDS SUMMARY | 2024-05-03 10:03 | XMS_ITS | Clinical Summary ---
Author Organization [facility] Address [address] [place] [address] Care Team Providers Care Quality Nurse Name Role Phone Earline Saucedo MD Primary Care Provider [phone] Allergies No known active allergies Medications Medication [...] age to complete this topic Care Teams Quality Nurse Relationship Specialty Start Date End Date Earline Saucedo MD [address] [place] [address] PCP - General Granulator Operator 01/16/18
== END 2024-05-03 09:42 | disposition home or self-care (01) ==
PROVIDERS: PCP Internal Medicine; Visit Provider Internal Medicine
DX: I10 Essential (primary) hypertension (principal); E78.5 Hyperlipidemia, unspecified; R22.42 Localized swelling, mass and lump, left lower limb

== ENCOUNTER 2024-05-03 09:12 | Outpatient (REF) | payer OTHER, SELFPAY ==
--- OUTSIDE RECORDS SUMMARY | 2024-05-03 10:50 | XMS_ITS | Clinical Summary ---
Author Organization [facility] Address [address] [place] [address] Care Team Providers Care Residence Life Director Name Role Phone Earline Saucedo MD Primary Care Provider [phone] Allergies No known active allergies Medications Medication [...] age to complete this topic Care Teams Residence Life Director Relationship Specialty Start Date End Date Earline Saucedo MD [address] [place] [address] PCP - General Casing Inspector 01/16/18
--- OUTSIDE RECORDS SUMMARY | 2024-05-03 10:50 | XMS_ITS | Clinical Summary ---
Author Organization [facility] Address [address] [place] [address] Care Team Providers Care Arrt Technologist Name Role Phone Earline Saucedo MD Primary Care Provider [phone] Surgical History Surgery Date Site/Laterality Comments KNEE [...] age to complete this topic Care Teams Arrt Technologist Relationship Specialty Start Date End Date Earline Saucedo MD PCP - General Industrial Boilermaker 01/16/18
--- OUTSIDE RECORDS SUMMARY | 2024-05-03 10:50 | XMS_ITS | Data Portability ---
Author Organization [place] [facility] [place] Address [address] [facility] [address] [place] [address] Care Team Providers Care Cadet Deck Name Role Phone BILLORLANDOReinaldoSTEVENSON Primary Care Provider [phone] Assessment Encounter Date Assessment Date Assessment LastModified [...] in detail. We discussed other modalities including xxph-nkd-azqstee analgesia and topicals as well as therapy. [...] knee, 4 or more view 2022 [address] [place] [address] [facility], [address], [place], [address], 3 15:02:12 Medication Orders Kenalog 40 mg/mL suspension for injection 2022 [address] [place] [address] [facility], [address] [place], [address], 3 10:20:12 lidocaine (PF) 10 mg/mL (1 %) injection solution 2022 [address] [place] [address] [facility], [address] [place], [address], 3 10:20:12 Patient TargetsNo targets recorded. Patient Instructions Encounter Date Encounter Id Patient Instructions Last Modified By Organization Details Last Modified Time 10/05/2022 [id number] You have been provided with a cortisone [...] Details Recorded Time Derangement of medial meniscus 672414424 Active 2022 BETTY UNDERWOOD PA-C [address], [place], [address], [place] [facility] 3 10:19:51 Problem Notes None recorded. Procedures Surgical History Date Name Laterality Status Provider Name and Address Organization Details Recorded Time 3 Knee Joint/Bursa Asp & Inj completed BETTY UNDERWOOD PA-C [address], [place], [address], [place] [facility] 10/05/2022 10:16:54 Knee Surgery completed [facility] 10/05/2022 10:03:09 Imaging Results None recorded. 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 not available 09/27/2022 Do [...] SNOMED-CT Code Diagnosis ICD10 Code Diagnosis Note [id number] MD SARINA Lorashavon skinner [address] [place] [address] [address] [facility] [place] [address] 10/05/2022 09:26:25 10/05/2022 10:27:00 Pain of left knee joint [id number] 48577 M25.562 Derangemen t of medial meniscus 035396184 M23.309 Health Concerns Section Related Observation LastModified by Organization Detai ls LastModified Time None Recorded Concern Status LastModified by Organization Details LastModified Time None Recorded Advance Directives Directive None Recorded Payers Encounter Date Sequence Insurance Name Policy Number Policy Dominguez Covered Member ID Dominguez Member ID Guarantor Name 10/05/2022 1 [facility] TYPE [facility] (H[facility] [id number] Arnav Milian [id number] Arnav Milian Notes Date Note Type [...] many years ago. BETTY UNDERWOOD PA-C [address] [facility] [address], [place], [address], [place] [facility] 10/05/2022 10:20:57
[2024-05-03 13:12] LABS: MANUAL DIFF FLAG NO
[2024-05-03 13:19] LABS: Basophils Absolute Auto 0.1 X10*3/uL (0.0-0.2); Basophils Percent Auto 0.8 % (0-2); Eosinophils Absolute Auto 0.3 X10*3/uL (0.0-0.4); Hematocrit 42.5 % (42.0-52.0); Hemoglobin 14.1 g/dl (14.0-18.0); Imm Gran Abs Auto 0.04 X10*3/uL (0.00-0.03); Imm Gran Pct Auto 0.6 % (0.0-0.4); Lymphocytes Absolute Auto 1.1 X10*3/uL (1.2-4.9); Lymphocytes Percent Auto 14.7 % (20-40); Mean Corpuscular HGB Conc 33.2 g/dl (31.0-36.0); Mean Corpuscular Hemoglobin 30.7 pg (27.0-33.0); Mean Corpuscular Volume 92.6 fL (80.0-98.0); Mean Platelet Volume 9.8 fL (9.4-12.4); Monocytes Absolute Auto 0.6 X10*3/uL (0.1-1.2); Monocytes Percent Auto 8.3 % (2-11); Neutrophils Absolute Auto 5.2 x10*3/uL (2.0-8.3); Neutrophils Percent Auto 71.6 % (45-73); Platelet Count 337 X10*3/uL (160-400); Red Blood Count 4.59 X10*6/uL (4.60-5.80); Red Cell Distribution Width 11.8 % (11.0-16.0); White Blood Count 7.2 X10*3/uL (4.8-10.8)
[2024-05-03 13:25] LABS: Alanine Aminotransferase 46 U/L (0-40); Albumin Level 4.1 g/dL (3.5-5.0); Alkaline Phosphatase 53 U/L (39-117); Anion Gap 12 (12-20); Aspartate Amino Transferase 28 U/L (5-37); Bilirubin Total 0.6 mg/dL (0.0-1.0); Blood Urea Nitrogen 19 mg/dL (9-16); C Reactive Protein 0.77 mg/dL (< or = 0.50); Calcium 9.5 mg/dL (8.4-10.2); Carbon Dioxide 25 mmol/L (22-29); Chloride 107 mmol/L (96-108); Estimated Glomerular Filt Rate > 60; Glucose Random 108 mg/dL (60-115); Iron 55 mcg/dL (45-160); Percent Iron Saturation 23 % (15-50); Potassium 3.7 mmol/L (3.3-5.1); Sodium 140 mmol/L (135-145); Total Iron Binding Capacity 239 mcg/dL (228-428); Total Protein 7.9 g/dL (6.5-8.0); Unsaturated Iron Binding 184 ug/dL
== END 2024-05-03 09:13 | disposition home or self-care (01) ==
LOC: HO.HMGCLDS 09:12
PROVIDERS: PCP Internal Medicine; Visit Provider Internal Medicine
DX: I10 Essential (primary) hypertension (principal); E78.5 Hyperlipidemia, unspecified; R22.42 Localized swelling, mass and lump, left lower limb; E87.6 Hypokalemia
CPT/HCPCS: 36415; 80053; 83540; 85025; 86140; 99212

== ENCOUNTER 2024-12-19 09:19 | Outpatient (AMB) | payer OTHER, SELFPAY ==
--- NOTE | 2024-12-19 09:37 | MHC.OFFWIV ---
Intake Vital Signs 12/19/24 09:38 Height 5 ft 7 in Weight 190 lb BMI 29.8 BP 162/78 H Blood Pressure Location Lt brachial Position Sitting Pulse 78 Pulse Source Pulse Oximeter Temp 97.9 F Temp Source Oral Pulse Oximetry (%) 97 Oxygen Delivery Method Room Air Intake Visit Reasons: EP-body rash Intake Note: pt presents with spreading poison ernesto rash on face, neck, arms, hands and legs Patient Tobacco Use Status: Former Tobacco user Allergies aspirin Adverse Reaction (Verified 12/19/24 09:41) upset stomach Do you need a note to return to daycare/school/sports/work: No HPI HPI Comments History of Present Illness Details History - The patient is a 64-year-old male presenting with a rash suspected to be due to poison ernesto exposure. - The rash appeared over the weekend after working in the backyard. - He first noticed it on the arms and then was noticed on the face after shaving. - The patient used a spray for relief, but the rash spread to the face and legs. - The rash is associated with itching, and the patient has used szpm-ahh-wxrahlq spray from [facility] for relief. - He denies fever, chills, joint pain, CP, or SOB. - He denies new foods, medications, lotions, soaps, detergents, clothes, pets, or travel. Physical Exam General: Cooperative, healthy appearing, comfortable, no acute distress and well developed Orientation: Patient oriented x3 Limitations: No limitations Respiratory: Normal respiratory effort and able to speak in complete sentences. Clear to auscultation bilaterally. No w/r/r noted. Cardiovascular: RRR, no m/r/g noted. Normal S1 and S2 Skin: Diffuse erythematous maculopapular rash noted on the arms bilaterally, neck and face. Dry, non-tender, blanchable with no lesions. No discharge or bleeding noted. Patient was informed and verbally consented to the use of an ambient scribe for clinic note documentation during this visit [facility] Medical History Annual physical exam Hyperglycemia Hyperlipidemia HTN (hypertension) Surgical History H/O colonoscopy Social History Housing: House Patient Tobacco Use Status: Former Tobacco user Years Smoked: 20 yrs e-Cigarette/Vaping Use: Never Used service: No Current occupational status: employed Cognitive needs: No Hearing needs: No Vision needs: Yes Review of Systems Const All systems reviewed & are unremarkable except as noted in HPI and below Physical Exam Vital Signs: Last Vital Signs Temp 97.9 F 12/19/24 09:38 Pulse 78 12/19/24 09:38 BP 162/78 H 12/19/24 09:38 Pulse Ox 97 12/19/24 09:38 Oxygen Delivery Method Room Air 12/19/24 09:38 BMI result Body Mass Index 29.8 Assessment & Plan Assessment & Plan (1) Rash: Code(s): R21 - Rash and other nonspecific skin eruption Plan Most likely contact dermatitis from poison ernesto exposure Plan - Prescribe a topical corticosteroid cream for application to affected areas to reduce inflammation. - Initiate a prednisone taper to manage systemic symptoms and reduce the rash. - Recommend the use of Pepcid for itching relief. - Advise the use of calamine lotion and home remedies to keep the skin dry and alleviate symptoms. - Instruct the patient to return if symptoms do not improve, with a potential referral to dermatology if necessary. Medications: New prednisone Day 1&2 take 4 tablets, day 3&4 take 3 tablets, day 5&6 take 2 tablets, days 7-9 take 1 tablet. 10 mg PO DIRECTED 21 ea 0RF famotidine (Pepcid) 20 mg PO DAILY 30 tabs 0RF hydrocortisone 2.5% 1 appl topical BID PRN 30 grams 0RF Skin Irritation Coding Level of Care Code Est Pt Level 3 (75672) Diagnoses Rash R21
[2024-12-19 09:38] VITALS: BP 162/78; PULSE 78; TEMP 36.6; O2SAT 97; BMI 29.8
--- OUTSIDE RECORDS SUMMARY | 2024-12-19 10:25 | XMS_ITS | Clinical Summary ---
Author Organization [facility] Address [address] [place] [address] Care Team Providers Care Diesel Trailer Mechanic Name Role Phone Earline Saucedo MD Primary Care Provider [phone] Allergies No known active allergies Medications Medication [...] (1 of 2) 2012 Influenza Vaccine (#1) 2024 RSV Adult > 60+ Yrs or Pregn [...] age to complete this topic Care Teams Diesel Trailer Mechanic Relationship Specialty Start Date End Date Earline Saucedo MD [address] [place] [address] PCP - General Repairer Evaporator 01/16/18
--- OUTSIDE RECORDS SUMMARY | 2024-12-19 10:25 | XMS_ITS | Patient Health Record ---
Author Organization [facility] Address [address] [place] [address] Care Team Providers Care Cook [employer] Name Role Phone Earline Saucedo MD Primary Care Provider Josue Disla Jr Unavailable Reason For Referral No Information Medications Medication SIG (Take, Route, Frequency, Duration) Notes Start Date End Date Status Lisinopril 30 MG Orally Act sonido Crestor 10 MG 1 tablet Orally Once a day Active Fish Oil Active Garlic Active Calcium Active Colyte with Flavor Packs 240 GM As directed Orally Over the specified time.; Duration: 1 day(s) 05/26/2016 Active Problems Problem Type SNOMED Code ICD Code Onset Dates Problem Status W/U Status Risk Notes Problem Colon cancer screening (900829881) Colon cancer screening (Z12.11) Active confirmed Plan Of Treatment Future Test Test Name Order Date COLONOSCOPY 05/26/2016 Insurance Providers Payer Name Payer Address Payer Phone Subscriber Number Group Number Insured Name Patient Relationship to Insured Coverage Start Date Coverage End Date [facility] [address] [place] [address] [id number] CAMILLA [place] Self - patient is the insured Medical (General) History Medical History History ICD Code hypertension Denies MA,DM,CVA,Lung disease,renal dise ase elevated cholesterol Surgical History Surgery Date(Month/Year) cyst removal on back and knee
--- OUTSIDE RECORDS SUMMARY | 2024-12-19 10:25 | XMS_ITS | Clinical Summary ---
Author Organization [facility] Address [address] [place] [address] Care Team Providers Care Investment Underwriter Name Role Phone Earline Saucedo MD Primary Care Provider [phone] Surgical History Surgery Date Site/Laterality Comments KNEE [...] Health Maintenance Due Date Last Done Comments Colorectal Cancer Screening: Colonoscopy 1962 DTaP,Tdap,and Td Vaccines (1 - Tdap) 1981 Pneumococcal Vaccine: 50+ Ye ars (1 of 1 - PCV) 2012 Zoster Vaccines (1 of 2) 2012 Cholesterol Screening (Lipid Panel) 04/05/2023 HIV Screening 04/05/2023 Hepatitis C Screening 04/05/2023 Social Influencers of Health Screening 04/05/2023 Depression Screening 03/07/2024 COVID-19 Vaccine (1 - 2023-2 5 season) 2024 Influenza Vaccine (#1) 2024 RSV Immunization Adult Patie nts (1 - 1-dose 75+ series) 2037 HIB [...] age to complete this topic Meningococcal B Vaccine Aged Out No l onger eligible based on patient's age to complete this topic RSV Immunization Patients Un robin 20 months Aged Out No longer eligible b ased on patient's age to complete this topic Varicella Vaccines Aged Out No longer eligible based on patient's age to complete this topic Care Teams Investment Underwriter Relationship Specialty Start Date End Date Earline Saucedo MD PCP - General Glass Deposition Tender 01/16/18
--- OUTSIDE RECORDS SUMMARY | 2024-12-19 10:25 | XMS_ITS ---
Author Name [facility] Organization Unknown History of Medication Use Medication Directions Dispensed Refills Start Date End Date Stat Kenalog 40 mg/mL suspension for injection Take 1 mL by injection route. 10/05/2022 active lidocaine (PF) 10 mg/mL (1 %) injection solution Take 2 mL by injection route. 10/05/2022 active doxycycline hyclate 100 mg tablet TAKE ONE TABLET BY MOUTH TWICE A DAY FOR 10 DAYS 10/05/2022 completed lisinopril 40 mg tablet TAKE 1 TABLET BY MOUTH DAILY active rosuvastatin 10 mg tablet TAKE ONE TABLET BY MOUTH EVERY DAY active triamterene 37.5 mg-hydrochlorothiaz mely 25 mg tablet TAKE 1 TABLET BY MOUTH DAILY active Problems Problem Status Onset Date Problem Type Date of Resoluti on Source Derangement of medial meniscus active 2022-10-05 ProblemAct ENS_AONECT Encounters Encounter Type Encounter Reason Primary Diagnosis Location Date Ambulatory [facility] 10/28/2022 Ambulatory [facility] 10/12/2022 Ambulatory [facility] 10/12/2022 Ambulatory [facility] 10/05/2022 Ambulatory [facility] 10/05/2022 Ambulatory [facility] 10/05/2022 Ambulatory [facility] 10/05/2022 Ambulatory [facility] 10/04/2022 Ambulatory [facility] 09/27/2022
== END 2024-12-19 10:42 | disposition home or self-care (01) ==
PROVIDERS: PCP Internal Medicine; Visit Provider Physician Assistant Medical
DX: R21 Rash and other nonspecific skin eruption (principal)

== ENCOUNTER → 2024-12-19 09:19 | Outpatient (BNVA) | payer OTHER, SELFPAY | PROVIDERS: PCP Internal Medicine; Visit Provider Physician Assistant Medical | DX: R21 Rash and other nonspecific skin eruption (principal) | CPT/HCPCS: 99212 ==